=== PATIENT | female | born 1965 | race Caucasian/White ===

== ENCOUNTER 2018-01-12 11:29 | Observation (INO) ==
[2018-01-12 12:20] LABS: Basophils # 0.1 K/mcL (0.0-0.2); Basophils % 1.4 %; Eosinophils # 0.2 K/mcL (0.0-0.6); Eosinophils % 2.3 %; Hematocrit 38.4 % (35.3-44.9); Hemoglobin 12.9 g/dL (11.5-15.4); Immature Granulocytes % 0.4 % (0-4); Lymphocytes # 1.8 K/mcL (0.6-4.6); Mean Corpuscular HGB Conc 33.6 g/dL (31.6-35.5); Mean Corpuscular Hemoglobin 28.9 pg (28.0-33.3); Mean Corpuscular Volume 86.1 fL (83.0-100.0); Mean Platelet Volume 11.6 fL (9.4-12.4); Monocytes # 0.7 K/mcL (0.0-1.3); Monocytes % 8.9 %; Neutrophils # 4.6 K/mcL (1.6-8.9); Platelet Count 100 K/mcL (140-400); Red Blood Count 4.46 M/mcL (3.82-4.97); Red Cell Distribution Width 14.1 % (11.5-14.5)
[2018-01-12 12:23] LABS: INR 1.1; Prothrombin Time 11.8 Seconds (9.4-12.1)
[2018-01-12 12:26] LABS: Activated Partial Thrombo Time 27.2 Seconds (26.0-36.0)
[2018-01-12 12:32] LABS: Troponin I < 0.03 ng/mL (< 0.04)
[2018-01-12 12:40] LABS: BUN/Creatinine Ratio 16 (6-26); Blood Urea Nitrogen 12 mg/dL (6-20); Calcium 9.4 mg/dL (8.6-10.3); Carbon Dioxide 26 mEq/L (23-29); Chloride 105 mEq/L (98-107); Glucose 161 mg/dL (70-105); Osmolality,Calculated 293 (280-300); Potassium 3.8 mEq/L (3.5-5.1); Sodium 140 mEq/L (136-145); eGFR For African Americans > 60 (> 60); eGFR For Non-African Americans > 60 (> 60)
[2018-01-12] MEDS ORDERED: Isovue-370 500 ML INFUS..BTL IV ONE (12:40)
[2018-01-12] MEDS ORDERED: *HR* OxyCODONE/APAP 5/325 TABLET PO ONE (12:41)
--- NOTE | 2018-01-12 12:45 | Emergency Department Note ---
Disposition Clinical Impression: COPD exacerbation, History of malignant neoplasm of neck Dyspnea Qualifiers: Dyspnea type: shortness of breath Qualified Code(s): R06.02 - Shortness of breath Disposition: Admitted As Inpatient Condition: Good Referrals: NONE,PCP [Non-Partnered Physician] - Forms: ED Satisfaction Letter Time of Disposition: 13:42 Chest Pain HPI - General Chief Complaint: ED Chest Pain Stated Complaint: CP Time Seen by Provider: 01/12/18 12:04 Source: patient Limitations: no limitations Vital Signs Reviewed: Yes Nursing Notes Reviewed: Yes - History of Present Illness HPI Narrative: This is a 52 year-old female with history of throat cancer, s/p chemo and radiation in 2008, and recently discovered lung nodule. She presents with substernal chest pain since early this morning. The pain is dull most of the time, with an occasional sharp component. The pain is mainly in the center of her chest but sometimes radiates to the left shoulder. She reports dyspnea, with an exertional component, and increased wheezing. She reports a nonproductive cough and bilateral lower extremity edema (L>R), both chronic. No recent fever. Pt complaint: chest pain Onset (ago): hour(s) (8) Duration: constant Onset: during rest Pain Location: substernal Severity: moderate Severity scale (1-10): 5 Quality: sharp Pain Radiation: LUE (sometimes) Improves with: nothing Worsens with: nothing Context: other (history of cancer, new lung nodule) Associated symptoms: Reports: cough (chronic, nonproductive), leg swelling ( bilateral, L>R). Denies: fever - Related Data Home Medications Medication Instructions Recorded Confirmed Methylphenidate HCl [Ritalin] 20 mg PO BID PRN 06/27/15 01/12/18 Morphine Sulfate [Quyen] 20 mg PO BID 06/27/15 01/12/18 Oxycodone HCl/Acetaminophen 1 each PO Q4H PRN 06/27/15 01/12/18 [Percocet 10-325 mg Tablet] Omeprazole 20 mg PO DAILY 10/11/16 01/12/18 Previous Rx's Medication Instructions Recorded Supplies [SUPPLIES] 1 each .ROUTE QMONTH #1 each 02/25/17 Oxybutynin [Ditropan] 5 mg PO BID #60 tablet 04/11/17 Levothyroxine [Synthroid] 175 mcg PO DAILY #30 tablet 11/04/17 Albuterol Sulfate [Proair Hfa] 1 puff IH Q6H PRN #1 inh 12/12/17 Ipratropium/Albuterol Neb [Duoneb] 3 ml IH Q6HR PRN #30 vial.neb 12/12/17 Nebulizer Accessories [A.i.r.s. 1 each AD #1 kit 12/12/17 Nebulizer] Nebulizer and Compressor [Ombra 1 each AD #1 each 12/12/17 Compressor System] Omeprazole [PriLOSEC] 40 mg PO DAILY #30 cap 12/12/17 Sulfamethoxazole/Trimeth DS 1 each PO BID #14 tablet 12/12/17 [Bactrim DS] Allergies Allergy/AdvReac Type Severity Reaction Status Date / Time acetaminophen Allergy Nausea Verified 01/12/18 10:22 [From Darvocet-N] ciprofloxacin [From Cipro] Allergy Nausea Verified 01/12/18 10:22 hydrocodone [From Vicodin] Allergy Nausea Verified 01/12/18 10:22 propoxyphene Allergy Nausea Verified 01/12/18 10:22 [From Darvocet-N] All systems ED: reviewed and negative except as stated. Constitutional: Denies: fever Cardiovascular: Reports: as per HPI, chest pain, dyspnea on exertion Gastrointestinal: Denies: abdominal pain, vomiting, hematemesis, melena, hematochezia Chest Pain PMH - Past Medical History Medical history: Reports: asthma, cancer, COPD, hyperlipidemia, hypertension, other Surgical history: Reports: other Psychiatric history: Reports: anxiety, depression - Social History Smoking Status: Former smoker Alcohol use: Reports: none Drug use: Reports: none Physical Exam - General Limitations: no limitations General appearance: alert - Head Head exam: atraumatic - Eye Eye exam: Present: normal appearance - ENT ENT exam: mucous membranes moist - Neck Neck exam: Present: other (s/p trach) - Respiratory Respiratory exam: Present: normal lung sounds bilaterally, wheezes (faint) - Cardiovascular Cardiovascular exam: Present: regular rate, normal rhythm, normal heart sounds - Abdominal Exam Abdominal exam: Present: soft, Non-Tender. Absent: distention - Extremities Exam Extremities exam: Present: normal inspection. Absent: calf tenderness - Neurological Exam Neurological exam: Present: alert, oriented X3 - Psychiatric Psychiatric exam: Present: normal affect, normal mood - Skin Skin exam: Present: warm, dry, intact Course - Reevaluation(s) Reevaluation #1: On recheck, patient is resting comfortably. Discussed test results with patient. She would like to come in for observation. Time: 13:41 - Consultations Consultation #1: Discussed case with Dr. Galo, who has accepted patient for admission. Time: 14:09 Vital Signs Temperature 98.4 F 01/12/18 11:36 Pulse Rate 100 01/12/18 11:36 Respiratory Rate 18 01/12/18 11:36 Blood Pressure 138/74 01/12/18 11:36 O2 Sat by Pulse Oximetry 97 01/12/18 11:36 Temperature 98.4 F 01/12/18 11:36 Pulse Rate 100 01/12/18 11:36 Respiratory Rate 18 01/12/18 11:36 Blood Pressure 138/74 01/12/18 11:36 O2 Sat by Pulse Oximetry 97 01/12/18 11:36 Oxygen Delivery Oxygen Delivery Room Air Chest Pain - Lab Data Lab results reviewed: Yes I reviewed the patient's lab results. Result diagrams: 01/12/18 11:56 01/12/18 11:56 Lab Results 01/12/18 01/12/18 01/12/18 Range/Units 11:56 11:56 11:56 WBC 7.3 (4.3-11.1) K/mcL RBC 4.46 (3.82-4.97) M/mcL Hgb 12.9 (11.5-15.4) g/dL Hct 38.4 (35.3-44.9) % MCV 86.1 (83.0-100.0) fL MCH 28.9 (28.0-33.3) pg MCHC 33.6 (31.6-35.5) g/dL RDW 14.1 (11.5-14.5) % Plt Count 100 L (140-400) K/mcL MPV 11.6 (9.4-12.4) fL Immature Gran % 0.4 (0-4) % Seg Neutrophils % 63.0 % Lymphocytes % 24.0 % Monocytes % 8.9 % Eosinophils % 2.3 % Basophils % 1.4 % Neutrophils # 4.6 (1.6-8.9) K/mcL Lymphocytes # 1.8 (0.6-4.6) K/mcL Monocytes # 0.7 (0.0-1.3) K/mcL Eosinophils # 0.2 (0.0-0.6) K/mcL Basophils # 0.1 (0.0-0.2) K/mcL PT 11.8 (9.4-12.1) Seconds INR 1.1 APTT 27.2 (26.0-36.0) Seconds Sodium (136-145) mEq/L Potassium (3.5-5.1) mEq/L Chloride (98-107) mEq/L Carbon Dioxide (23-29) mEq/L BUN (6-20) mg/dL Creatinine (0.60-1.20) mg/dL Est GFR ( Amer) (> 60) Est GFR (Non-Af Amer) (> 60) BUN/Creatinine Ratio (6-26) Glucose (70-105) mg/dL Calculated Osmolality (280-300) Calcium (8.6-10.3) mg/dL Troponin I (< 0.04) ng/mL B-Natriuretic Peptide 9 (Less than 100) pg/mL 01/12/18 Range/Units 11:56 WBC (4.3-11.1) K/mcL RBC (3.82-4.97) M/mcL Hgb (11.5-15.4) g/dL Hct (35.3-44.9) % MCV (83.0-100.0) fL MCH (28.0-33.3) pg MCHC (31.6-35.5) g/dL RDW (11.5-14.5) % Plt Count (140-400) K/mcL MPV (9.4-12.4) fL Immature Gran % (0-4) % Seg Neutrophils % % Lymphocytes % % Monocytes % % Eosinophils % % Basophils % % Neutrophils # (1.6-8.9) K/mcL Lymphocytes # (0.6-4.6) K/mcL Monocytes # (0.0-1.3) K/mcL Eosinophils # (0.0-0.6) K/mcL Basophils # (0.0-0.2) K/mcL PT (9.4-12.1) Seconds INR APTT (26.0-36.0) Seconds Sodium 140 (136-145) mEq/L Potassium 3.8 (3.5-5.1) mEq/L Chloride 105 (98-107) mEq/L Carbon Dioxide 26 (23-29) mEq/L BUN 12 (6-20) mg/dL Creatinine 0.74 (0.60-1.20) mg/dL Est GFR ( Amer) > 60 (> 60) Est GFR (Non-Af Amer) > 60 (> 60) BUN/Creatinine Ratio 16 (6-26) Glucose 161 H (70-105) mg/dL Calculated Osmolality 293 (280-300) Calcium 9.4 (8.6-10.3) mg/dL Troponin I < 0.03 (< 0.04) ng/mL B-Natriuretic Peptide (Less than 100) pg/mL - Radiology Data Radiology results reviewed: Yes I reviewed the patient's radiology results. XR/XR chest 1V portable IMPRESSION: 1. No acute cardiopulmonary disease. 2. Tracheostomy in place. CT/CT angio chest IMPRESSION: 1. No CT evidence of a pulmonary embolism. 2. No acute abnormality of the thoracic aorta. 3. No acute intra pulmonary findings. 4. Stable 8 mm left lower lobe pulmonary nodule, possibly a focus of metastatic disease given the patient's history of head neck cancer. As stated on yesterday's report, suggest further characterization with a PET-CT study and/or biopsy. - EKG Data EKG attestation: Yes I reviewed and interpreted this EKG. EKG shows normal: sinus rhythm Rhythm: NSR [place]/QRS: normal When compared to previous EKG there are: no significant changes Interpretation: normal EKG
[2018-01-12] MEDS ORDERED: Ipratropium/Albuterol Neb 3 ML IH ONE (13:37)
--- NOTE | 2018-01-12 13:39 | Electrocardiograph Report ---
[place] [employer] [facility] Test Date: 2018-01-12 Pat Name: Kierra Zarco Department: 103 Room: Gender: F Delivery Lead: : 1965 Requested By: Travon Skelton Order Number: [id number] Gilda MD: Misael Gonzalez MD Measurements Intervals [place] Rate: 93 P: 61 MT: 152 QRS: 23 QRSD: 92 T: 41 QT: 376 QTc: 427 Interpretive Statements SINUS RHYTHM Electronically Signed On 01-12-2018 13:38:24 EDT by Misael Gonzalez MD
[2018-01-12] MEDS ORDERED: Naloxone 0.4 MG/ML INJ IVP PRN (17:21)
[2018-01-12] MEDS ORDERED: Methylphenidate HCl 10 MG TABLET PO PRN (17:32)
--- NOTE | 2018-01-12 17:38 | Internal Med History&Physical ---
Date of Encounter: 01/12/18 Time of Encounter: 17:37 Internal Medicine - H&P: HPI Chief complaint: chest pain Admitted From: Emergency Dept Plans for Post Hospital Care: Home History of present illness: Ms. 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 Patient came to emergency department for persistent precordial chest pain which was radiating to her jaw. The chest pain was getting worse with activity and exertion and was relieved by rest. In view of the persistent chest pain patient decided to come to Hospital emergency department for further evaluation. Workup in the emergency room: Patient was evaluated in the emergency department. Basic workup was done. EKG was done. Troponins were drawn. Reason for admission: Chest pain to rule out acute coronary syndrome. Family history: Noncontributory Past Med Surg Social Fam HX - Past Medical History Medical history: asthma, cancer, COPD, hyperlipidemia, hypertension, other Psychiatric history: anxiety, depression - Past Surgical History Surgical History: other - Social History Smoking Status: Former smoker Smokeless Tobacco Status: No Alcohol use: none Drug use: none - Family History Father Living Status: Hx Family Cardiac Disorders: Yes Mother Living Status: Hx Family Cancer: Yes Internal Medicine - H&P: Meds Methylphenidate HCl [Ritalin] 20 mg PO BID PRN 06/27/15 [History] Oxybutynin [Ditropan] 5 mg PO BID #60 tablet 04/11/17 [Rx] Levothyroxine [Synthroid] 175 mcg PO DAILY #30 tablet 11/04/17 [Rx] Ipratropium/Albuterol Neb [Duoneb] 3 ml IH Q6HR PRN #30 vial.neb 12/12/17 [Rx] Omeprazole [PriLOSEC] 40 mg PO DAILY #30 cap 12/12/17 [Rx] HydrOXYzine [HydrOXYzine] 10 mg PO BID 01/12/18 [History] HydrOXYzine [HydrOXYzine] 20 mg PO HS 01/12/18 [History] Morphine Sulfate SR (12 HR) [MS Contin] 15 mg PO BID 01/12/18 [History] Oxycodone HCl 15 mg PO QID 01/12/18 [History] 3 Allergy/AdvReac Type Severity Reaction Status Date / Time acetaminophen Allergy Nausea Verified 01/12/18 15:13 [From Darvocet-N] ciprofloxacin [From Cipro] Allergy Nausea Verified 01/12/18 15:13 hydrocodone [From Vicodin] Allergy Nausea Verified 01/12/18 15:13 propoxyphene Allergy Nausea Verified 01/12/18 15:13 [From Darvocet-N] All Systems PM: A 10-system review of systems was performed and is negative for pertinent findings except as documented above in the HPI. - Constitutional Constitutional: no chills, no fever(s), no night sweats - EENT Eyes: no change in vision, no discharge, no pain, no photophobia Ears: no ear discharge, no ear pain, no tinnitus Nose, mouth and throat: no dysphagia, no nasal discharge, no neck pain, no sore throat - Cardiovascular Cardiovascular ROS IM: chest pain, no diaphoresis, no dyspnea, no lightheadedness, no palpitations, no syncope - Respiratory Respiratory: no cough, no dyspnea, no wheezing, no excessive phlegm production - Gastrointestinal Gastrointestinal: no abdominal pain, no diarrhea, no hematemesis, no hematochezia, no melena, no nausea, no vomiting - Genitourinary Genitourinary: no change in urinary stream, no dysuria, no flank pain, no hematuria - Musculoskeletal Musculoskeletal ROS IM: no numbness, no tingling - Integumentary Integumentary IM: no rash, no unusual bruising - Neurological Neurological ROS: no confusion, no convulsions, no focal weakness, no numbness, no tingling, no tremor(s) - Hematologic/Lymphatic Hematologic/Lymphatic: no easy bruising - Constitutional Vitals: Temp Pulse Resp BP Pulse Ox 98.6 F 82 14 136/76 95 01/12/18 16:10 01/12/18 16:10 01/12/18 16:10 01/12/18 16:10 01/12/18 16:10 General appearance: Present: A&O X 3, pleasant, no acute distress, answers questions appropriately - Head Head exam: Present: atraumatic, normocephalic - Eye Eye exam: Present: PERRL, conjuntiva pink, sclera anicteric Pupils: Present: PERRL - Neck Neck exam general surgery: Present: supple, trachea midline. Absent: lymphadenopathy - Respiratory Respiratory exam: Present: CTAB. Absent: accessory muscle use, rales, rhonchi, wheezes - Cardiovascular Cardiovascular exam: Present: RRR, +S1, +S2. Absent: diastolic murmur, gallop, rubs, systolic murmur - GI/Abdominal GI/Abdominal exam: Present: normal bowel sounds, soft, no peritoneal signs. Absent: distended, tenderness - Extremities Exam Extremities exam: Present: warm, radial pulses palpable and symmetrical. Absent : calf tenderness, cyanotic, pedal edema - Neurological Exam Neurological exam: Present: CN II-XII intact, oriented X3, no focal deficits. Absent: pronater drift, facial droop, speech deficit - Skin Skin exam: Present: dry, intact Internal Med - H&P Results - Labs CBC & Chem 7: 01/12/18 11:56 01/12/18 11:56 - Assessment and plan (1) Chest pain Current Visit: No Status: Acute Assessment and plan: 52/female Admitted with chest pain. Background history of a supraglottic cancer. Had extensive radiation to the precordial area. Plan: Admit as observation. Aspirin/beta myrna/statin. Sublingual nitroglycerin. Cycle troponin. Echocardiogram. If the troponin negative/echocardiogram negative: Consider stress test. I have examined this patient in the emergency department. Plan of care extent to the patient. She verbalized understanding. Qualifiers: Chest pain type: other chest pain Qualified Code(s): R07.89 - Other chest pain; R07.8 - Other chest pain (2) Head and neck cancer Current Visit: No Status: Acute Assessment and plan: Patient is a supraglottic cancer. She underwent surgery/chemotherapy/radiation therapy. Patient had a metastatic disease to the brain. patient underwent radiation therapy for the same. Now she claims that there is a new nodules/masses noted in the lung. We will get oncology to evaluate patient. (3) DVT prophylaxis Current Visit: Yes Status: Acute Assessment and plan: Heparin Medical decision making: This patient has a moderate to severe risk of worsening in spite of being on appropriate medication due to the underlying complex medical condition. - Time Spent With Patient Total time spent is greater than 50% in coordination of care (as documented) at patient's floor/unit and/or counseling patient:
[2018-01-12] MEDS ORDERED: Nitroglycerin 0.4 MG TAB.SUBL SL PRN (19:44)
[2018-01-12] MEDS: *HR* Heparin 5,000 UNIT/ML VIAL SQ SCH (21:35)
[2018-01-12] MEDS: *HR* Morphine Sulfate SR (12 HR) 15 MG TABLET.ER PO SCH (21:43)
[2018-01-12] MEDS: *HR* OxyCODONE Immed Rel 15 MG TABLET PO PRN (21:43)
[2018-01-12] MEDS: Ipratropium/Albuterol Neb 3 ML IH PRN (22:37)
[2018-01-13] MEDS: *HR* OxyCODONE Immed Rel 15 MG TABLET PO PRN ×4 (03:56→21:29)
[2018-01-13 05:35] LABS: INR 1.1; Prothrombin Time 11.6 Seconds (9.4-12.1)
[2018-01-13 05:37] LABS: Activated Partial Thrombo Time 27.8 Seconds (26.0-36.0)
[2018-01-13 05:49] LABS: Alanine Aminotransferase 28 Units/L (7-52); Albumin/Globulin Ratio 1.7 (1.1-2.2); Alkaline Phosphatase 64 Units/L (34-104); Aspartate Amino Transferase 29 Units/L (13-39); BUN/Creatinine Ratio 16 (6-26); Bilirubin,Total 0.3 mg/dL (0.3-1.0); Blood Urea Nitrogen 10 mg/dL (6-20); Calcium 8.8 mg/dL (8.6-10.3); Carbon Dioxide 28 mEq/L (23-29); Chloride 105 mEq/L (98-107); Chol/HDL Ratio 4.7 (0-4.9); Cholesterol 189 mg/dL (< 200); Globulin 2.3 g/dL (2.4-3.5); Glucose 124 mg/dL (70-105); HDL Cholesterol 40 mg/dL (40-59); LDL Cholesterol,Calculated 98 mg/dL (0-99); Magnesium 2.1 mg/dL (1.6-2.6); Osmolality,Calculated 288 (280-300); Potassium 3.6 mEq/L (3.5-5.1); Sodium 139 mEq/L (136-145); Total Protein 6.3 g/dL (6.4-8.9); Triglycerides 256 mg/dL (< 150); eGFR For African Americans > 60 (> 60); eGFR For Non-African Americans > 60 (> 60)
[2018-01-13] MEDS: *HR* Heparin 5,000 UNIT/ML VIAL SQ SCH ×3 (06:16→21:30)
[2018-01-13] MEDS ORDERED: Regadenoson 0.4 MG/5 ML SYRINGE IVP ONE (08:14)
[2018-01-13] MEDS: *HR* Morphine Sulfate SR (12 HR) 15 MG TABLET.ER PO SCH ×2 (11:03→21:30)
--- NOTE | 2018-01-13 11:18 | Internal Med Progress Note ---
Date of Encounter: 01/13/18 Time of Encounter: 11:14 - Assessment and plan (1) Chest pain Current Visit: No Status: Acute Assessment and plan: 52/female experiencing substernal chest pain mostly dull occasionally sharp dyspnea with exertion. Risk include obesity previous smoker hypertension hyperlipidemia. Troponins are negative [address]-T wave abnormalities. Patient underwent first half of 2 day stress test tolerated well- echocardiogram Continue with aspirin beta myrna and statin Nitroglycerin as needed for chest pain Qualifiers: Chest pain type: other chest pain Qualified Code(s): R07.89 - Other chest pain; R07.8 - Other chest pain (2) Head and neck cancer Current Visit: No Status: Acute Assessment and plan: Patient is a supraglottic cancer. She underwent surgery/chemotherapy/radiation therapy. Patient had a metastatic disease to the brain. patient underwent radiation therapy for the same. She does have stable 8 mm left lower lobe pulmonary nodule. Was seen by oncology 01/12/18-will undergo PET scan in 2 weeks January 25 for new left lower lobe lung nodule (3) DVT prophylaxis Current Visit: Yes Status: Acute Assessment and plan: Heparin subcutaneous - Time Spent With Patient Total time spent is greater than 50% in coordination of care (as documented) at patient's floor/unit and/or counseling patient: - Subjective Interval history: Patient is new to me I did review medical records. Patient has undergone the first half of 2 day cardiac stress test. Tolerated procedure well. No chest pain or stress of the voice at this time. I did review treatment plan with patient who verbalized understanding. - Constitutional Vitals: Temp Pulse Resp BP Pulse Ox 98.2 F 80 18 152/84 91 01/13/18 11:08 01/13/18 11:08 01/13/18 11:08 01/13/18 11:08 01/13/18 11:08 General appearance: Present: A&O X 3, pleasant, no acute distress, answers questions appropriately - Head Head exam: Present: atraumatic, normocephalic - Eye Eye exam: Present: PERRL, conjuntiva pink, sclera anicteric Pupils: Present: PERRL - Neck Neck exam general surgery: Present: supple, trachea midline. Absent: lymphadenopathy - Respiratory Respiratory exam: Present: CTAB. Absent: accessory muscle use, rales, rhonchi, wheezes - Cardiovascular Cardiovascular exam: Present: RRR, +S1, +S2. Absent: diastolic murmur, gallop, rubs, systolic murmur - GI/Abdominal GI/Abdominal exam: Present: normal bowel sounds, soft, no peritoneal signs. Absent: distended, tenderness - Extremities Exam Extremities exam: Present: warm, radial pulses palpable and symmetrical. Absent : calf tenderness, cyanotic, pedal edema - Neurological Exam Neurological exam: Present: CN II-XII intact, oriented X3, no focal deficits. Absent: pronater drift, facial droop, speech deficit - Skin Skin exam: Present: dry, intact Internal Medicine: Result - Labs CBC & Chem 7: 01/12/18 11:56 01/13/18 05:01 Labs: BMP 01/13/18 05:01 Sodium 139 Potassium 3.6 Chloride 105 Carbon Dioxide 28 BUN 10 Creatinine 0.63 Glucose 124 H Calcium 8.8 Cardiac Enzymes 01/12/18 01/12/18 01/13/18 Range/Units 21:04 22:49 05:01 Troponin I < 0.03 < 0.03 < 0.03 (< 0.04) ng/mL Liver Function 01/13/18 Range/Units 05:01 Total Bilirubin 0.3 (0.3-1.0) mg/dL AST 29 (13-39) Units/L ALT 28 (7-52) Units/L Alkaline Phosphatase 64 (34-104) Units/L Albumin 4.0 (3.5-5.7) g/dL - ABG Interpretation ABG results: PT/INR, D-dimer PT 11.6 Seconds (9.4-12.1) 01/13/18 05:01 Consult Discharge Plan - Plan
[2018-01-13] MEDS: Aspirin Enteric Coated 81 MG Tablet PO SCH (11:29)
--- NOTE | 2018-01-13 11:47 | Oncology Inp Consult Note ---
<Jey Talbert Jr - Last Filed: 01/13/18 15:14> Date of Encounter: 01/13/18 Time of Encounter: 11:44 Assessment and Plan (1) History of malignant neoplasm of neck Status: Acute Assessment and plan: As is a very pleasant 52-year-old female with a history of head and neck cancer , in remission. Follows Dr. Jc Mclaughlin at the [facility] for surveillance. CT neck abdomen and pelvis with 02/2017 negative. Large right renal cyst She has chronic changes in the neck since treatment CT scan of chest, abdomen and pelvis on 01/11/2018 showed no metastatic disease in the abdomen or pelvis. She does have a new 8 mm left lower lobe lung nodule. No other acute process on CT scans. PET scan recommended and/or biopsy due to history and tobacco use. PET scan was ordered for 01/25/18 as an outpatient Family history colon cancer in maternal GM, maternal aunt. Mom had uterine cancer. Larson syndrome concern. Genetic testing negative January 2018 in genetics counseling clinic at [facility] Patient had acute substernal chest pain, and difficulty breathing yesterday when at our clinic. She was sent to ER. We agree with recommendations of hospitalist and stress testing due to her cardiac risk factors. In terms of her new left lower lobe lung nodule, this will be evaluated as an outpatient with PET scan. No new addition to the current plan while hospitalized for this bout of chest pain. Dr Mclaughlin will assess patient as well, and place any further notations in chart. (2) Mass of lower lobe of left lung Status: Acute - Data of Consult Patient: known to practice within the last 3 years Consult date: 01/13/18 Requesting Physician: Rosalino Galo Primary Care Provider: Jey Talbert Jr, - Consult Narrative Reason for consult: Head and neck cacner history with new lung nodule History of present illness: Ms. Zarco is a 52 year old female with history Left arytenoid squamous cell carcinoma, December 2008. Supraglottic laryngectomy with left neck dissection. Oropharyngeal myomectomy December 2009. Well-differentiated squamous cell carcinoma, grade 1, limited to larynx T3 N0 M0, clear margins, no additional resection. Postoperatively concurrent chemoradiation with cisplatin, 3 doses 100 mg/m2. Currently in remission She has tracheostomy MRI brain w/wo contrast on 05/20/16 shows no evidence to suggest intracranial metastatic disease. Showed evidence of previous surgery which she had for meningioma Ct abd/pel w/ con on 05/20/[address] neck w/con on 05/20/16 was negative no evidence of lymphadenopathy CT scan of chest, abdomen and pelvis on 01/11/2018 showed no metastatic disease in the abdomen or pelvis. She does have a new 8 mm left lower lobe lung nodule. PET scan recommended and or biopsy. PET scan was ordered 01/12/18 for 01/25/18 as outpatient Patient came to the [facility] on 01/12/2018 with substernal chest pain , difficulty breathing especially on exertion. She has significant wheezing of the upper airways. She has known history of asthma/COPD from smoking previously. She is on home nebulizers and rescue inhalers. She had several risk factors for coronary artery disease, so she was sent to the emergency department for evaluation. She was admitted and she is currently undergoing 2 day cardiac stress testing. Past Med Surg Social Fam HX - Past Medical History Medical history: asthma, cancer, COPD, hyperlipidemia, hypertension, other Psychiatric history: anxiety, depression - Past Surgical History Surgical History: other - Social History Smoking Status: Former smoker Smokeless Tobacco Status: No Alcohol use: none Drug use: none - Family History Father Living Status: Hx Family Cardiac Disorders: Yes Mother Living Status: Hx Family Cancer: Yes Medications and Allergies Methylphenidate HCl [Ritalin] 20 mg PO BID PRN 06/27/15 [History] Oxybutynin [Ditropan] 5 mg PO BID #60 tablet 04/11/17 [Rx] Levothyroxine [Synthroid] 175 mcg PO DAILY #30 tablet 11/04/17 [Rx] Ipratropium/Albuterol Neb [Duoneb] 3 ml IH Q6HR PRN #30 vial.neb 12/12/17 [Rx] Omeprazole [PriLOSEC] 40 mg PO DAILY #30 cap 12/12/17 [Rx] HydrOXYzine 10 mg PO BID 01/12/18 [History] HydrOXYzine 20 mg PO HS 01/12/18 [History] Morphine Sulfate SR (12 HR) [MS Contin] 15 mg PO BID 01/12/18 [History] Oxycodone HCl 15 mg PO QID 01/12/18 [History] Aspirin Enteric Coated [Aspirin EC] 81 mg PO DAILY #30 tablet. 01/16/18 [Rx] 3 Allergy/AdvReac Type Severity Reaction Status Date / Time acetaminophen Allergy Nausea Verified 01/12/18 15:13 [From Darvocet-N] ciprofloxacin [From Cipro] Allergy Nausea Verified 01/12/18 15:13 hydrocodone [From Vicodin] Allergy Nausea Verified 01/12/18 15:13 propoxyphene Allergy Nausea Verified 01/12/18 15:13 [From Darvocet-N] Constitutional: Present: fatigue Cardiovascular: Present: chest pain with activity Respiratory: Present: dyspnea on exertion, wheezing Oncology - Exam - Constitutional Vitals: Temp Pulse Resp BP Pulse Ox 98.2 F 80 18 152/84 91 01/13/18 11:08 01/13/18 11:08 01/13/18 11:08 01/13/18 11:08 01/13/18 11:08 General appearance: cooperative, no acute distress - Head Head exam: Present: atraumatic, normocephalic - Eye Eye exam: Present: PERRL Pupils: Present: normal accommodation - ENT ENT exam: Present: mucous membranes moist - Neck Neck exam: Present: full ROM Additional comments: tracheostomy - Respiratory Respiratory exam: Present: decreased breath sounds, wheezes - Cardiovascular Cardiovascular exam: Present: RRR, +S1, +S2 - GI/Abdominal GI/Abdominal exam: Present: normal bowel sounds, soft - Neurological Exam Neurological exam: Present: alert, oriented X3, no focal deficits - Psychiatric Psychiatric exam: Present: normal affect, normal mood - Skin Skin exam: Present: dry, intact, warm Oncology - Results Labs: BMP 01/13/18 05:01 Sodium 139 Potassium 3.6 Chloride 105 Carbon Dioxide 28 BUN 10 Creatinine 0.63 Glucose 124 H Calcium 8.8 Cardiac Enzymes 01/12/18 01/12/18 01/13/18 Range/Units 21:04 22:49 05:01 Troponin I < 0.03 < 0.03 < 0.03 (< 0.04) ng/mL Liver Function 01/13/18 Range/Units 05:01 Total Bilirubin 0.3 (0.3-1.0) mg/dL AST 29 (13-39) Units/L ALT 28 (7-52) Units/L Alkaline Phosphatase 64 (34-104) Units/L Albumin 4.0 (3.5-5.7) g/dL Consult Discharge Plan - Plan Instructions: Chest Pain (DC) Referrals: Jey Talbert Jr, PAT [Primary Care Provider] - Jc Mclaughlin MD [Partnered Physician] - Prescriptions: Aspirin Enteric Coated [Aspirin EC] 81 mg PO DAILY #30 tablet.dr <Jc Mclaughlin - Last Filed: 01/16/18 17:27> Date of Encounter: 01/16/18 - Data of Consult Requesting Physician: Rosalino Galo Primary Care Provider: Jey Talbert Jr, - Consult Narrative History of present illness: Ms. Zarco is a 52 year old female Oncology - Exam - Constitutional Vitals: Temp Pulse Resp BP Pulse Ox 97.5 F L 93 15 120/83 92 01/16/18 14:45 01/16/18 16:30 01/16/18 10:46 01/16/18 16:30 01/16/18 16:30 - Attending Attestation 1. Head and neck cancer treated currently in remission 2. CT chest 01/21/2018 showed 8mm new spiculated nodule left lower lobe. PET scan as an outpatient 3. She is admitted with chest pain mostly sharp in the anterior chest radiating to back. Serial troponins negative. Nuclear stress test showed ejection fraction more than 70% perfusion images negative for ischemia. But she did have chest pain during stress test Left heart catheter showed minimal disease. Echocardiogram 01/13/2018 showed ejection fraction 60-65%. No pulmonary hypertension. Both ventricular function normal
[2018-01-13] MEDS: Ipratropium/Albuterol Neb 3 ML IH PRN (16:00)
[2018-01-14] MEDS: *HR* OxyCODONE Immed Rel 15 MG TABLET PO PRN ×4 (03:11→21:43)
[2018-01-14] MEDS: *HR* Heparin 5,000 UNIT/ML VIAL SQ SCH ×3 (06:07→21:43)
[2018-01-14] MEDS: Aspirin Enteric Coated 81 MG Tablet PO SCH (09:22)
[2018-01-14] MEDS: *HR* Morphine Sulfate SR (12 HR) 15 MG TABLET.ER PO SCH ×2 (09:22→21:44)
--- NOTE | 2018-01-14 16:37 | Discharge Summary ---
- NOTES TO OUTPATIENT PROVIDER Notes to Outpatient Provider: She will need follow up with oncology for PETscan scheduled 01/26/2017 Orders not resulted at time of discharge: Pending orders 01/13/18 07:53 NM yolis perf SPECT multi [NM] Routine Date of Encounter: 01/14/18 Time of Encounter: 16:37 - Discharge Diagnosis (1) Chest pain Priority: Primary Status: Acute Qualifiers: Chest pain type: other chest pain Qualified Code(s): R07.89 - Other chest pain; R07.8 - Other chest pain (2) Head and neck cancer Priority: Secondary Status: Acute Hospital course: Ms. Zarco is a 52 year old female past medical history of hypertension hyperlipidemia COPD supraglottic density for which she underwent surgery/ chemotherapy/radiation therapy-tracheostomy. CT scan of chest abdomen pelvis on 01/11/2018 showed no metastatic disease in the abdomen or pelvis. She does have a new 8 mm left lower lobe lung nodule. She is being seen by oncology and is to undergo a PET scan 01/25/2018 as an outpatient. 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 Chest pain is aggravated with activity and exertion relieved with rest.. Troponin was negative [address]-T wave abnormalities echocardiogram was completed EF of 66 5% she underwent a 2 day stress test which was negative for any ischemia or infarct. She was seen by oncology for new 8 mm left lower lobe lung nodule. Advising to follow-up as outpatient for PET scan. Patient's follow-up with her primary care physician as well. Advised patient to follow-up with oncology as well as PCP. Advised patient take medications as prescribed. I answered patient's questions. She is presently hemodynamically stable and ready for discharge. - Time Spent with Patient Total time spent providing and/or coordinating discharge services: - Discharge Medications Home Medications: Methylphenidate HCl [Ritalin] 20 mg PO BID PRN 06/27/15 [History] Oxybutynin [Ditropan] 5 mg PO BID #60 tablet 04/11/17 [Rx] Levothyroxine [Synthroid] 175 mcg PO DAILY #30 tablet 11/04/17 [Rx] Ipratropium/Albuterol Neb [Duoneb] 3 ml IH Q6HR PRN #30 vial.neb 12/12/17 [Rx] Omeprazole [PriLOSEC] 40 mg PO DAILY #30 cap 12/12/17 [Rx] HydrOXYzine 10 mg PO BID 01/12/18 [History] HydrOXYzine 20 mg PO HS 01/12/18 [History] Morphine Sulfate SR (12 HR) [MS Contin] 15 mg PO BID 01/12/18 [History] Oxycodone HCl 15 mg PO QID 01/12/18 [History] Allergies/Adverse Reactions: 3 Allergy/AdvReac Type Severity Reaction Status Date / Time acetaminophen Allergy Nausea Verified 01/12/18 15:13 [From Darvocet-N] ciprofloxacin [From Cipro] Allergy Nausea Verified 01/12/18 15:13 hydrocodone [From Vicodin] Allergy Nausea Verified 01/12/18 15:13 propoxyphene Allergy Nausea Verified 01/12/18 15:13 [From Darvocet-N] Date of admission: 01/12/18 15:09 Primary care physician: Jey Talbert Jr, Consults: 01/12/18 17:34 Consult to Oncology Hematology [CONS] Routine Consulting Provider: Jc Mclaughlin Reason for Consult: Ca larynx with new lung nodule Call Completed: Yes Discharging clinician: Vicenta Mcgowan Anticipated date of discharge: 01/14/18 - Constitutional Vitals: Temp Pulse Resp BP Pulse Ox 98.1 F 95 18 125/71 93 01/14/18 10:55 01/14/18 10:55 01/14/18 10:55 01/14/18 10:55 01/14/18 10:55 General appearance: Present: A&O X 3, pleasant, no acute distress, answers questions appropriately - Head Head exam: Present: atraumatic, normocephalic - Eye Eye exam: Present: PERRL, conjuntiva pink, sclera anicteric Pupils: Present: PERRL - Neck Neck exam general surgery: Present: supple, trachea midline. Absent: lymphadenopathy - Respiratory Respiratory exam: Present: CTAB. Absent: accessory muscle use, rales, rhonchi, wheezes - Cardiovascular Cardiovascular exam: Present: RRR, +S1, +S2. Absent: diastolic murmur, gallop, rubs, systolic murmur - GI/Abdominal GI/Abdominal exam: Present: normal bowel sounds, soft, no peritoneal signs. Absent: distended, tenderness - Extremities Exam Extremities exam: Present: warm, radial pulses palpable and symmetrical. Absent : calf tenderness, cyanotic, pedal edema - Neurological Exam Neurological exam: Present: CN II-XII intact, oriented X3, no focal deficits. Absent: pronater drift, facial droop, speech deficit - Skin Skin exam: Present: dry, intact - Patient Status Disposition: Home, Self-Care Condition: Good Functional capacity at discharge: independent ambulation Overall status at discharge: patient is back to baseline - Discharge Instructions Instructions: Chest Pain (DC) Follow Up With: Jey Talbert Jr, CNP [Primary Care Provider] - Jc Mclaughlin MD [Partnered Physician] - Forms: Work/School Release - Diet and Activity Activity: resume usual activities as tolerated Diet: advance to your usual diet
--- NOTE | 2018-01-14 17:17 | Internal Med Progress Note ---
Date of Encounter: 01/14/18 Time of Encounter: 17:14 - Assessment and plan (1) Chest pain Current Visit: No Status: Acute Assessment and plan: 52/female experiencing substernal chest pain mostly dull occasionally sharp dyspnea with exertion. Risk include obesity previous smoker hypertension hyperlipidemia. Troponins are negative [address]-T wave abnormalities. Patient underwent second half of 2 day stress test tolerated well-awaiting results echocardiogram-EF 6065% normal LV chamber size wall thickness and function mild left ventricular diastolic dysfunction normal right ventricular structure and function no evidence pulmonary hypertension no significant valvular dysfunction Continue with aspirin beta myrna and statin Nitroglycerin as needed for chest pain Qualifiers: Chest pain type: other chest pain Qualified Code(s): R07.89 - Other chest pain; R07.8 - Other chest pain (2) Head and neck cancer Current Visit: No Status: Acute Assessment and plan: Patient is a supraglottic cancer. She underwent surgery/chemotherapy/radiation therapy. Patient had a metastatic disease to the brain. patient underwent radiation therapy for the same. She does have stable 8 mm left lower lobe pulmonary nodule. Was seen by oncology 01/12/18-will undergo PET scan in 2 weeks January 25 for new left lower lobe lung nodule Seen by oncology per consult-will follow-up with PET scan as outpatient - Time Spent With Patient Total time spent is greater than 50% in coordination of care (as documented) at patient's floor/unit and/or counseling patient: - Subjective Interval history: Patient has undergone the second half of her 2 day stress test. She tolerated procedure well denies any chest pain at this time awaiting results. I did speak with oncology Dr. Morrison confirmed follow-up advised to follow-up as outpatient for PET scan reviewed treatment plan with patient who understands and agrees - Constitutional Vitals: Temp Pulse Resp BP Pulse Ox 98.1 F 95 18 125/71 93 01/14/18 10:55 01/14/18 10:55 01/14/18 10:55 01/14/18 10:55 01/14/18 10:55 General appearance: Present: A&O X 3, pleasant, no acute distress, answers questions appropriately - Head Head exam: Present: atraumatic, normocephalic - Eye Eye exam: Present: PERRL, conjuntiva pink, sclera anicteric Pupils: Present: PERRL - Neck Neck exam general surgery: Present: supple, trachea midline. Absent: lymphadenopathy - Respiratory Respiratory exam: Present: CTAB. Absent: accessory muscle use, rales, rhonchi, wheezes - Cardiovascular Cardiovascular exam: Present: RRR, +S1, +S2. Absent: diastolic murmur, gallop, rubs, systolic murmur - GI/Abdominal GI/Abdominal exam: Present: normal bowel sounds, soft, no peritoneal signs. Absent: distended, tenderness - Extremities Exam Extremities exam: Present: warm, radial pulses palpable and symmetrical. Absent : calf tenderness, cyanotic, pedal edema - Neurological Exam Neurological exam: Present: CN II-XII intact, oriented X3, no focal deficits. Absent: pronater drift, facial droop, speech deficit - Skin Skin exam: Present: dry, intact Internal Medicine: Result - Labs CBC & Chem 7: 01/12/18 11:56 01/13/18 05:01 - ABG Interpretation ABG results: PT/INR, D-dimer PT 11.6 Seconds (9.4-12.1) 01/13/18 05:01 Consult Discharge Plan - Plan Referrals: Jey Talbert Jr, ART CLASS MODEL [Primary Care Provider] -
--- NOTE | 2018-01-14 17:54 | Event Note ---
Date of Encounter: 01/14/18 Time of Encounter: 17:52 Received a message from Dr. Hatfield concerning stress test "accuracy in 2 day stress test is always a bit lower. I am going to to say cannot rule out multivessel CAD because a small ventricle and appearance of tid. Most likely this is artifact. If she continues to have chest pain we can keep and cath on Tuesday. If not I can see her in clinic Tuesday to see how she is doing. Just send her on aspirin nitroglycerin and ED precautions." Did discuss this result with the patient she does express that she continues to have intermittent chest pain. We will keep overnight and monitor and I will discuss with cardiology in the a.m.
[2018-01-15] MEDS: *HR* OxyCODONE Immed Rel 15 MG TABLET PO PRN ×4 (03:25→21:19)
[2018-01-15] MEDS: *HR* Heparin 5,000 UNIT/ML VIAL SQ SCH ×3 (03:28→21:20)
[2018-01-15] MEDS: *HR* Morphine Sulfate SR (12 HR) 15 MG TABLET.ER PO SCH ×2 (09:24→21:19)
[2018-01-15] MEDS: Aspirin Enteric Coated 81 MG Tablet PO SCH (09:24)
--- NOTE | 2018-01-15 10:30 | Cardiology Consult Note ---
Date of Encounter: 01/15/18 Time of Encounter: 10:00 Assessment and Plan (1) Abnormal stress test Current Visit: Yes Status: Acute Encouraged patient to try medicaltherapy as stress test is probably normal and TID is likely artifact from small ventricle with chest pain being atypical, trial of NSAIDs seems to be appropriate but she is adamant regarding LHC and has history of smoking and chemoradiation as risk factors. A/R/B of LHC including 1% chance of NV//CVA/CABG/IAM/bleeding, she is aware and wishes to proceed. (2) Atypical chest pain Current Visit: Yes Status: Acute encouraged medical therapyover [facility] but she wants [facility] Discussion w patient/family: The assessment and plan as outlined above was discussed with the patient and/or family members who expressed understanding and agreement. All questions were answered. Thank you for involving us in the care of your patient. Please call with any questions. History of Present Illness Consult date: 01/15/18 Consult reason: chest pain/abnormal stress Chief complaint: chest pain History of present illness: Ms. 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 It does not worsen with a deep breath. She underwent stress testing which was found to be possibly abnormal Past Med Surg Social Fam HX - Past Medical History Medical history: asthma, cancer, COPD, hyperlipidemia, hypertension, other Psychiatric history: anxiety, depression - Past Surgical History Surgical History: other - Social History Smoking Status: Former smoker Smokeless Tobacco Status: No Alcohol use: none Drug use: none - Family History Father Living Status: Hx Family Cardiac Disorders: Yes Mother Living Status: Hx Family Cancer: Yes Medications and Allergies Methylphenidate HCl [Ritalin] 20 mg PO BID PRN 06/27/15 [History] Oxybutynin [Ditropan] 5 mg PO BID #60 tablet 04/11/17 [Rx] Levothyroxine [Synthroid] 175 mcg PO DAILY #30 tablet 11/04/17 [Rx] Ipratropium/Albuterol Neb [Duoneb] 3 ml IH Q6HR PRN #30 vial.neb 12/12/17 [Rx] Omeprazole [PriLOSEC] 40 mg PO DAILY #30 cap 12/12/17 [Rx] HydrOXYzine 10 mg PO BID 01/12/18 [History] HydrOXYzine 20 mg PO HS 01/12/18 [History] Morphine Sulfate SR (12 HR) [MS Contin] 15 mg PO BID 01/12/18 [History] Oxycodone HCl 15 mg PO QID 01/12/18 [History] 3 Allergy/AdvReac Type Severity Reaction Status Date / Time acetaminophen Allergy Nausea Verified 01/12/18 15:13 [From Darvocet-N] ciprofloxacin [From Cipro] Allergy Nausea Verified 01/12/18 15:13 hydrocodone [From Vicodin] Allergy Nausea Verified 01/12/18 15:13 propoxyphene Allergy Nausea Verified 01/12/18 15:13 [From Darvocet-N] All Systems Review: The remainder of the systems were reviewed and are negative - Constitutional Constitutional: no chills, no fever(s) - EENT Eyes: no blurred vision, no loss of vision Nose, mouth and throat: no bleeding gums, no epistaxis - Cardiovascular Cardiovascular: chest pain at rest, chest pain with exertion - Respiratory Respiratory: no hemoptysis, no wheezing - Gastrointestinal Gastrointestinal: no hematemesis, no hematochezia - Genitourinary Genitourinary: no hematuria, no nocturia - Musculoskeletal Musculoskeletal: no muscle cramps, no muscle weakness - Integumentary Integumentary: no erythema, no unusual bruising - Neurological Neurological: no syncope, no tingling - Psychiatric Psychiatric: no hallucinations, no panic attacks - Hematological/Lymphatic Hematologic/Lymphatic: no easy bleeding, no easy bruising Physical Examination Vital Signs, Last 4 Hours Temp Pulse Resp BP Pulse Ox 01/15/18 06:54 97.6 F 91 18 109/63 94 General: Conversant HEENT: Atraumatic Neck: No JVD, Other (stoma) Cardiac: Reg Rate and Rhythm Lungs: Normal Breath Sounds Neuro: Alert and responsive Skin: No rashes noted on visualized skin Musculoskeletal: No Chest Wall Tenderness Extremities: No Edema Results 01/12/18 11:56 01/13/18 05:01 - Imaging and Cardiology Stress Test: image reviewed (no ischemia, cannot ruleout TID) - EKG Interpretation EKG results cardiology: personally reviewed, sinus rhythm, no diagnostic ischemia Consult Discharge Plan - Plan Instructions: Chest Pain (DC) Referrals: Jey Talbert Jr, CNP [Primary Care Provider] - Jc Mclaughlin MD [Partnered Physician] -
[2018-01-15] MEDS ORDERED: Ketorolac 30 MG/ML VIAL IVP ONE (10:35)
--- NOTE | 2018-01-15 12:26 | Internal Med Progress Note ---
Date of Encounter: 01/15/18 Time of Encounter: 12:10 - Assessment and plan (1) Chest pain Current Visit: No Status: Acute Assessment and plan: 52/female experiencing substernal chest pain mostly dull occasionally sharp dyspnea with exertion. Risk include obesity previous smoker hypertension hyperlipidemia cancer and radiation treatment. Troponins are negative [address]-T wave abnormalities. Patient underwent a 2 day stress test results per cardiology cannot rule out multivessel CAD because small ventricle and appearance of 3 times a day which is most likely artifact cardiology did speak with patient concerning these results who is opting for cardiac catheterization on Tuesday. echocardiogram-EF 6065% normal LV chamber size wall thickness and function mild left ventricular diastolic dysfunction normal right ventricular structure and function no evidence pulmonary hypertension no significant valvular dysfunction Continue with aspirin beta myrna and statin Nitroglycerin as needed for chest pain Qualifiers: Chest pain type: other chest pain Qualified Code(s): R07.89 - Other chest pain; R07.8 - Other chest pain (2) Head and neck cancer Current Visit: No Status: Acute Assessment and plan: Patient is a supraglottic cancer. She underwent surgery/chemotherapy/radiation therapy. Patient had a metastatic disease to the brain. patient underwent radiation therapy for the same. She does have stable 8 mm left lower lobe pulmonary nodule. Was seen by oncology 01/12/18-will undergo PET scan in 2 weeks January 25 for new left lower lobe lung nodule Seen by oncology per consult-will follow-up with PET scan as outpatient (3) DVT prophylaxis Current Visit: Yes Status: Acute Assessment and plan: Heparin subcutaneous - Time Spent With Patient Total time spent is greater than 50% in coordination of care (as documented) at patient's floor/unit and/or counseling patient: - Subjective Interval history: Patient has undergone the second half of her 2 day stress test. She did have abnormali reading. Dr Hatfield did speak to patient concerning result and patient is to undergo cardiac catheterization in a.m. She will be nothing by mouth in the morning. I did review treatment plan with patient and she verbalized understanding and agreement. - Constitutional Vitals: Temp Pulse Resp BP Pulse Ox 98.1 F 91 18 123/80 95 01/15/18 11:44 01/15/18 11:44 01/15/18 11:44 01/15/18 11:44 01/15/18 11:44 General appearance: Present: A&O X 3, pleasant, no acute distress, answers questions appropriately - Head Head exam: Present: atraumatic, normocephalic - Eye Eye exam: Present: PERRL, conjuntiva pink, sclera anicteric Pupils: Present: PERRL - Neck Neck exam general surgery: Present: supple, trachea midline. Absent: lymphadenopathy - Respiratory Respiratory exam: Present: CTAB. Absent: accessory muscle use, rales, rhonchi, wheezes - Cardiovascular Cardiovascular exam: Present: RRR, +S1, +S2. Absent: diastolic murmur, gallop, rubs, systolic murmur - GI/Abdominal GI/Abdominal exam: Present: normal bowel sounds, soft, no peritoneal signs. Absent: distended, tenderness - Extremities Exam Extremities exam: Present: warm, radial pulses palpable and symmetrical. Absent : calf tenderness, cyanotic, pedal edema - Neurological Exam Neurological exam: Present: CN II-XII intact, oriented X3, no focal deficits. Absent: pronater drift, facial droop, speech deficit - Skin Skin exam: Present: dry, intact Internal Medicine: Result - Labs CBC & Chem 7: 01/12/18 11:56 01/13/18 05:01 - ABG Interpretation ABG results: PT/INR, D-dimer PT 11.6 Seconds (9.4-12.1) 01/13/18 05:01 Consult Discharge Plan - Plan Instructions: Chest Pain (DC) Referrals: Jey Talbert Jr, D[employer]ET[employer] SPECIALIST [Primary Care Provider] - Jc Mclaughlin MD [Partnered Physician] -
[2018-01-16] MEDS: *HR* OxyCODONE Immed Rel 15 MG TABLET PO PRN ×4 (03:20→21:42)
[2018-01-16] MEDS: *HR* Heparin 5,000 UNIT/ML VIAL SQ SCH ×3 (05:31→21:42)
--- NOTE | 2018-01-16 05:50 | Electrocardiograph Report ---
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
[2018-01-16] MEDS: *HR* Morphine Sulfate SR (12 HR) 15 MG TABLET.ER PO SCH ×2 (09:52→20:23)
[2018-01-16] MEDS: Aspirin Enteric Coated 81 MG Tablet PO SCH (09:53)
[2018-01-16] MEDS ORDERED: ISOVUE-370 200 ML INFUS..BTL IV ONE (13:35)
[2018-01-16] MEDS ORDERED: Heparin 1,000 UNITS/500 mL 500 ML ONE (13:35)
[2018-01-16] MEDS ORDERED: Nitroglycerin 1,000 MCG/10 ML VIAL IV ONE (13:35)
[2018-01-16] MEDS ORDERED: 0.9 % Sodium Chloride 1,000 ML ONE ×2 (13:35→13:44)
[2018-01-16] MEDS ORDERED: *HR* Heparin 10,000 UNIT/10 ML VIAL ONE (13:35)
[2018-01-16] MEDS ORDERED: *HR* Midazolam HCl 2 MG/2 ML VIAL ONE ×2 (13:44→14:09)
[2018-01-16] MEDS ORDERED: *HR* FentaNYL (PF) 100 MCG/2 ML VIAL ONE (13:44)
--- NOTE | 2018-01-16 13:51 | Pre-Sedation Evaluation ---
Pre-sedation evaluation - Pre-sedation checklist Date of procedure: 01/16/18 Procedure: left heart cath Recent Vitals: Last Vital Signs Temp 97.7 F 01/16/18 10:46 Pulse 89 01/16/18 10:46 Resp 15 01/16/18 10:46 BP 161/78 01/16/18 10:46 Pulse Ox 94 01/16/18 10:46 H&P (including ROS) documented in medical record: Yes Previous reaction to sedatives/anesthetics: No Dietary Status: NPO 6 hours prior to procedure Dentition: full dentition ASA Classification *see protocol: CLASS II-Mild systemic disease Plan of Care: Pt appropriate candidate for procedure/moderate/conscious sedation , Risks/benefits of procedure/sedation discussed w/ patient/family
[2018-01-16] MEDS ORDERED: Verapamil 5 MG/2 ML VIAL ONE (13:58)
--- NOTE | 2018-01-16 14:30 | Event Note ---
Date of Encounter: 01/16/18 Time of Encounter: 14:29 - Cardiology Event Note S/P LHC with very minimal disease. Final report pending. Continue 81mg ASA. Cardiology signing off. Reconsult PRN.
--- NOTE | 2018-01-16 16:04 | Discharge Summary ---
- NOTES TO OUTPATIENT PROVIDER Notes to Outpatient Provider: Patient is to follow-up with PET scan with oncology as outpatient. Left heart catheter with very minimal disease Date of Encounter: 01/16/18 Time of Encounter: 15:44 - Discharge Diagnosis (1) Chest pain Priority: Primary Status: Acute Qualifiers: Chest pain type: other chest pain Qualified Code(s): R07.89 - Other chest pain; R07.8 - Other chest pain (2) Head and neck cancer Priority: Secondary Status: Acute Hospital course: Ms. 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 Recently had a CT scan of chest abdomen pelvis on 01/11/2018 which showed no metastatic disease in the abdomen or pelvis however she did have a new 8 mm left lower lobe lung nodule. She has been seen by oncology as an outpatient and has a scheduled PET scan on January 26. Shepresented to the emergency department with chest pain she described as sharp shooting across her chest it is aggravated with exertion and relieved with rest. She underwent cardiac stress test which was found to be possibly abnormal. She was seen by cardiology and underwent left heart catheter which showed minimal disease. Cardiology advising to continue with aspirin and follow-up with primary care physician. She was seen by oncology during admission who advised to continue with scheduled outpatient PET scan. I advised patient to follow-up with primary care as well as oncology and to keep appointment for PET scan. She verbalized understanding. Also advised patient to continue with home medications and to take aspirin daily I answered patient's questions she is hemodynamically stable at this time and ready for discharge. Discharge discussed with: patient - Time Spent with Patient Total time spent providing and/or coordinating discharge services: - Discharge Medications Prescriptions: Aspirin Enteric Coated [Aspirin EC] 81 mg PO DAILY #30 tablet. Home Medications: Methylphenidate HCl [Ritalin] 20 mg PO BID PRN 06/27/15 [History] Oxybutynin [Ditropan] 5 mg PO BID #60 tablet 04/11/17 [Rx] Levothyroxine [Synthroid] 175 mcg PO DAILY #30 tablet 11/04/17 [Rx] Ipratropium/Albuterol Neb [Duoneb] 3 ml IH Q6HR PRN #30 vial.neb 12/12/17 [Rx] Omeprazole [PriLOSEC] 40 mg PO DAILY #30 cap 12/12/17 [Rx] HydrOXYzine 10 mg PO BID 01/12/18 [History] HydrOXYzine 20 mg PO HS 01/12/18 [History] Morphine Sulfate SR (12 HR) [MS Contin] 15 mg PO BID 01/12/18 [History] Oxycodone HCl 15 mg PO QID 01/12/18 [History] Aspirin Enteric Coated [Aspirin EC] 81 mg PO DAILY #30 tablet. 01/16/18 [Rx] Allergies/Adverse Reactions: 3 Allergy/AdvReac Type Severity Reaction Status Date / Time acetaminophen Allergy Nausea Verified 01/12/18 15:13 [From Darvocet-N] ciprofloxacin [From Cipro] Allergy Nausea Verified 01/12/18 15:13 hydrocodone [From Vicodin] Allergy Nausea Verified 01/12/18 15:13 propoxyphene Allergy Nausea Verified 01/12/18 15:13 [From Darvocet-N] Date of admission: 01/15/18 16:43 Primary care physician: Jey Talbert Jr, Discharging clinician: Vicenta Mcgowan Anticipated date of discharge: 01/16/18 - Constitutional Vitals: Temp Pulse Resp BP Pulse Ox 97.5 F L 108 15 120/77 94 01/16/18 14:45 01/16/18 14:45 01/16/18 10:46 01/16/18 14:45 01/16/18 10:46 General appearance: Present: A&O X 3, pleasant, no acute distress, answers questions appropriately - Head Head exam: Present: atraumatic, normocephalic - Eye Eye exam: Present: PERRL, conjuntiva pink, sclera anicteric Pupils: Present: PERRL - Neck Neck exam general surgery: Present: supple, trachea midline. Absent: lymphadenopathy - Respiratory Respiratory exam: Present: CTAB. Absent: accessory muscle use, rales, rhonchi, wheezes - Cardiovascular Cardiovascular exam: Present: RRR, +S1, +S2. Absent: diastolic murmur, gallop, rubs, systolic murmur - GI/Abdominal GI/Abdominal exam: Present: normal bowel sounds, soft, no peritoneal signs. Absent: distended, tenderness - Extremities Exam Extremities exam: Present: warm, radial pulses palpable and symmetrical. Absent : calf tenderness, cyanotic, pedal edema - Neurological Exam Neurological exam: Present: CN II-XII intact, oriented X3, no focal deficits. Absent: pronater drift, facial droop, speech deficit - Skin Skin exam: Present: dry, intact - Patient Status Disposition: Home, Self-Care Condition: Good Functional capacity at discharge: uses cane/walker - Discharge Instructions Instructions: Chest Pain (DC) Follow Up With: Jey Talbert Jr, CNP [Primary Care Provider] - Jc Mclaughlin MD [Partnered Physician] - Forms: Work/School Release - Diet and Activity Activity: increase activity as tolerated Diet: advance to your usual diet
[2018-01-17] MEDS: *HR* OxyCODONE Immed Rel 15 MG TABLET PO PRN ×2 (03:34→10:33)
[2018-01-17] MEDS: *HR* Heparin 5,000 UNIT/ML VIAL SQ SCH (05:52)
[2018-01-17] MEDS: Aspirin Enteric Coated 81 MG Tablet PO SCH (09:11)
[2018-01-17] MEDS: *HR* Morphine Sulfate SR (12 HR) 15 MG TABLET.ER PO SCH (09:11)
[2018-01-17 11:30] VITALS: BP 108/77
--- NOTE | 2018-02-06 12:24 | Invasive Diagnostic Lab Proc ---
Name: Kierra Zarco Date of Study: 01/16/2018 Date: 1965 Ht: 59.1in Medical Record#: [id number] Age: 52 Wt: 211.64lb Gender: Female BSA: 1.89 Order #: [id number] BMI: 42.67 Physicians Procedure Physician: Harley Hatfield MD, [facility] Referring MD: Referring MD: Staff Name Position Time In Bebe Villa RT (R) Monitor 02:02 PM Zulay Paiz RN Snap Attacher 02:02 PM Jose Armando Hernandez RT (R) Scrub 02:02 PM Indications Indication Abnormal Test - Stress Procedures Performed Procedure L HRT ARTERY/VENTRICLE ANGIO Pre-Procedure Checklist Informed consent is complete signed and on chart. H&P is on chart. ID band is on and ID verified with patient. Patient NPO for procedure The procedure was described for the patient and questions were answered. Blood Pressure: 123/74 ECG is on chart. Rhythm: NSR Plan of Care Patient will tolerate the procedure without complications. Adequate level of comfort will be maintained. Hemodynamics will remain stable Patient will recover from procedure without complications. Respiratory function will be maintained. Cardiac rhythm will remain stable. Patient temperature will be maintained. Patient and/or family have verbalized understanding of the procedure. Patient Education Chief Complaint/Reason for Test: Cardiac Cath Developmental Category: Adult (18-64 years) Developmentally Appropriate for Age: Yes Learning Barriers: None Education Needs: Procedure Education Method: Verbal Information Taught: Cardiac Cath Educational Evaluation: Able to repeat information Intravenous Access Time IV Size Location DC'd Fluid/Drip Rate Units RN 07:53 AM 20g 1 1/4" Patent On Arrival Rt Hand 0.9NaCl 25 ml/hr 02:03 PM Started with 22g 1 " Rt Arm 0.9NaCl 25 ml/hr Allergies DARVOCET hydrocodone ciprofloxacin acetaminophen Vital Signs Time BP (mmHg) HR (bpm) O2 Sat. RR (bpm) LOC 02:01 PM 123 / 74 98 94 % 16 5 = Fully awake and oriented or at pre-proc level 02:05 PM / % 4 = Oriented but drowsy 02:05 PM / % 4 = Oriented but drowsy 01:58 PM 123 / 74 94 96 % Procedural Medications Time Medication Dose Units Method Given By 02:05 PM Versed 2 mg Intravenous Zulay Paiz RN 02:05 PM Fentanyl 50 mcg Intravenous Zulay Paiz RN 02:09 PM Lidocaine 2% 0.5 ml Subcutaneous Harley Hatfield MD, FACC 02:09 PM Versed 1 mg Intravenous Zulay Paiz RN 02:09 PM Fentanyl 25 mcg Intravenous Zulay Paiz RN 02:11 PM Heparin 4000 units Nitroglycerin 200 mcg Verapamil 2.5 mg Intraarterial Harley Hatfield MD, FACC 02:19 PM Oxygen 6 L/min Oxy Mask Zulay Paiz RN ASA Classification: CLASS II- Mild systemic disease (i.e. well-controlled diabetes, hypertension, asthma, cigarette smoking) Bimal Score Preprocedure Postprocedure Activity 2- Moves 4 extremities sustained head lift Activity 2- Moves 4 extremities sustained head lift Circulation 2- SBP +/= 20 points of pre-anesthetic level Circulation 2- SBP +/= 20 points of pre-anesthetic level Consciousness 2- Awake and alert oriented x 3 Consciousness 2- Awake and alert oriented x 3 O2 Saturation 2- Able to maintain O2 satruation of 92% on room air O2 Saturation 2- Able to maintain O2 satruation of 92% on room air Respiratory 2- Able to deep breathe and cough well Respiratory 2- Able to deep breathe and cough well Total Score 10 Total Score 10 Contrast Agent: Isovue Diagnostic Contrast: 65 ml Total Contrast: 65 ml Fluoro Dose: 323 mGy Procedure Log Time Note Enter By 01:56 PM CathStat 01:57 PM NIBP STAT measurement started. 01:58 PM HR=94 bpm, IDGQ=477/74 mmhg, SpO2=96.0 %, Comment=NSR 02:01 PM Recorded ECG: HR=94 Condition=Condition 1 02:02 PM Pt arrived to ship laborer 2 at 14:02 [email or web address] 02:02 PM Bebe Villa RT (R) Position: Monitor Time in: 14:02 [email or web address] 02:02 PM Zulay Paiz RN Position: Snap Attacher Time in: 14:02 [email or web address] 02:02 PM Jose Armando Hernandez RT (R) Position: Scrub Time in: 14:02 [email or web address] 02:02 PM Patient charges- Angio tray pack, Navilyst 3mm J, Pulse Oximetry and ACIST tubing and transducer [facility] 02:02 PM IV Supplies used: J loop Angio Cath. [email or web address] 02:02 PM Case Delayed No [email or web address] 02:03 PM Hair removed from procedure site in holding area using clippers. Right wrist prepped with Chloraprep by Bebe Villa RT (R), then patient was draped. Skin intact. [email or web address] 02:03 PM Hair removed from procedure site in holding area using clippers. Right groin prepped with Chloraprep by Bebe Villa RT (R), then patient was draped. Skin intact. [email or web address] 02:03 PM Physician arrived 14:03 [email or web address] 02:03 PM ASA Class CLASS II- Mild systemic disease (i.e. well-controlled diabetes, hypertension, asthma, cigarette smoking) [email or web address] 02:03 PM Meet and greet completed [email or web address] 02:03 PM Sign in performed according to hospital policy. [email or web address] 02:03 PM Procedure start 14:03 [email or web address] 02:05 PM Time: 14:05 Patient comfortable and pain free: Yes [email or web address] 02:05 PM Time: 14:05LOC: 4 = Oriented but drowsy [email or web address] 02:05 PM Time: 14:05 Versed 2 mg Intravenous Given by Zulay Paiz RN [email or web address] 02:05 PM Time: 14:05 Fentanyl 50 mcg Intravenous Given by Zulay Paiz RN [email or web address] 02:05 PM Pressure channel 1 zeroed. 02:08 PM Time out performed according to hospital policy [email or web address] 02:09 PM Pressure channel 1 zeroed. 02:09 PM Time: 14:09 0.5 ml Lidocaine 2% to right radial Subcutaneous Given by Harley Hatfield MD, FACC [email or web address] 02:09 PM Time: 14:09 Versed 1 mg Intravenous Given by Zulay Paiz RN [email or web address] 02:09 PM Time: 14:09 Fentanyl 25 mcg Intravenous Given by Zulay Paiz RN [email or web address] 02:11 PM Access obtained by percutaneous puncture. 5Fr 10cm Terumo Glidesheath sheath placed in right Radial artery. [id number] [email or web address] 02:11 PM Time: 14:11 Patient given 4,000 units Heparin, 200 mcg Nitroglycerin, and 2.5 mg Verapamil Intraarterial by Harley Hatfield MD, FACC. This is given to reduce risk of vessel spasm and thrombosis. [email or web address] 02:11 PM 0.035 260cm Navilyst 3mmJ wire [id number] [email or web address] 02:12 PM 5Fr TIG catheter inserted over the wire [facility] [email or web address] 02:14 PM RCA angiography performed in multiple views. [email or web address] 02:14 PM Recorded Pressure: Ao, HR=94, Condition=Condition 1 (Aorta) Ao 75/57/66 02:14 PM Catheter repositioned for LCA. [email or web address] 02:14 PM Lesion found in Distal RCA. Pre Stenosis: 20 Pre MARVIN Flow: 3: Complete and Brisk Flow/Perfusion [email or web address] 02:16 PM Catheter removed [email or web address] 02:16 PM 5Fr RBL 3.5 Convey guide catheter was used to cannulate the PCI vessel successfully. reused? No [email or web address] 02:17 PM Pressure channel 1 zero failed. 02:17 PM Pressure channel 1 zeroed. 02:17 PM Recorded Pressure: LV, HR=99, Condition=Condition 1 (Left Ventricle) LV 79/14/15 02:18 PM Catheter selectively placed in left ventricle [email or web address] 02:18 PM Bolus angiogram of left Ventricle complete: 10 ml/sec for a total of 20 mls [email or web address] 02:18 PM Recorded Pressure: LV, Ao, HR=98, Condition=Condition 1 (Left Ventricle) LV 69/22/30, (Aorta) Ao 84/23/56 02:18 PM LCA angiography performed in multiple views. [email or web address] 02:19 PM Time: 14:19 Oxygen on at 6 L/min per Oxy Mask by Zulay Paiz RN [email or web address] 02:19 PM Recorded Pressure: Ao, HR=97, Condition=Condition 1 (Aorta) Ao 92/68/79 02:20 PM Time: 14:05LOC: 4 = Oriented but drowsy [email or web address] 02:20 PM Time: 14:05 Patient comfortable and pain free: Yes [email or web address] 02:20 PM Lesion found in Mid LAD. Pre Stenosis: 30 Pre MARVIN Flow: 3: Complete and Brisk Flow/Perfusion [email or web address] 02:21 PM Recorded Pressure: Ao, HR=90, Condition=Condition 1 (Aorta) Ao 89/62/75 02:21 PM Catheter removed [email or web address] 02:23 PM Procedure completed at 14:23 [email or web address] 02:23 PM Did you address MARVIN flow and Dominance? Yes [email or web address] 02:23 PM Coronary Dominance: right [email or web address] 02:23 PM Sign out completed: Radiation Dose 322.97 mGy Fluoro Time: 3.8 Isovue 370 - 200ml contrast 65 ml given by Harley Hatfield MD, [facility]. Complications: NoneCardiac Rehab Consult needed: NoConfirmed administered medications: Yes [email or web address] 02:23 PM Isovue 370 - 200ml,1 Bottle(s) used. [email or web address] 02:24 PM Arterial sheath pulled, Vasc Band closure device used and was Successful S/N. [email or web address] 02:24 PM 12 ml air in Vasc Band. [email or web address] 02:24 PM Estimated Blood Loss: minimal [email or web address] 02:24 PM Post ECG NSR [email or web address] 02:24 PM Post Blood Pressure 123/74 [email or web address] 02:24 PM 14:24 Post Pulses Rt Radial 2+ [email or web address] 02:24 PM Information taught Cardiac Cath [email or web address] 02:24 PM Education needs Procedure, Plan of Care, and Disease Process [email or web address] 02:24 PM Learning barriers :None [email or web address] 02:24 PM Education Methods Verbal [email or web address] 02:24 PM Education evaluation Able to repeat information [email or web address] 02:25 PM Site status No bleeding/hematoma - Rt Wrist as reported by Jose Armando Hernandez RT (R) at 14:24 [email or web address] 02:25 PM Delay to floor No [email or web address] 02:25 PM Family placed in not available. [email or web address] 02:25 PM Complications: None [email or web address] 02:25 PM Fluoro Time: 3.8 [email or web address] 02:25 PM Isovue 370 - 200ml contrast [address] Hatfield. [email or web address] 02:25 PM Radiation Dose 322.97 mGy [email or web address] 02:27 PM Report given to RN Pt taken to Room #31. 14:27 [email or web address] 02:30 PM Patient out of room: 14:30 [email or web address] 02:30 PM Complications: None [email or web address] Complications Complication None None None Hemodynamics Pressures Site Systolic/A Wave Diastolic/V Wave Mean AO 75 57 66 LV 79 14 15 LV 69 22 30 AO 84 23 56 AO 92 68 79 AO 89 62 75 Post Procedure Information Blood Pressure: 123/74 mmHg Rhythm: NSR Post procedural instructions were given Closure Device Time Device Success/Fail 01/16/2018 2:25:00 PM Manual Compression Successful Site Checks Time Location Status Staff Sheath In? Note 02:24 PM Rt Wrist No bleeding/hematoma Jose Armando Hernandez RT (R) Pulses Time Site Pre-Procedure Post-Procedure Note 01/16/2018 7:53:00 AM Bilateral DP 2+ 01/16/2018 7:53:00 AM Bilateral radial 2+ 2:24:00 PM Rt Radial 2+ Updated by Bebe Villa, RT(R) on 01/16/2018 2:32:11 PM electronically signed on 02/06/2018 12:15:54 PM with status of Final
== END 2018-01-17 15:55 | disposition home or self-care (01) ==
LOC: EMEROO 11:29 → 3BNU 11:29
PROVIDERS: ADMIT Hospitalist; ATTEND Hospitalist

== ENCOUNTER 2019-11-19 18:28 | Inpatient (IN) ==
[2019-11-19] MEDS ORDERED: Ketorolac 30 MG/ML VIAL IM ONE (19:04)
[2019-11-19 19:12] LABS: Hematocrit 42.5 % (35.3-44.9); Hemoglobin 13.7 g/dL (11.5-15.4); Mean Corpuscular HGB Conc 32.2 g/dL (31.6-35.5); Mean Corpuscular Hemoglobin 28.2 pg (28.0-33.3); Mean Corpuscular Volume 87.6 fL (83.0-100.0); Red Blood Count 4.85 M/mcL (3.82-4.97); Red Cell Distribution Width 14.5 % (11.5-14.5); White Blood Count 14.4 K/mcL (4.3-11.1)
[2019-11-19 19:25] LABS: Mean Platelet Volume 10.2 fL (9.4-12.4)
[2019-11-19 19:31] LABS: BUN/Creatinine Ratio 27 (6-26); Blood Urea Nitrogen 17 mg/dL (6-20); Calcium 9.1 mg/dL (8.6-10.3); Carbon Dioxide 21 mEq/L (23-29); Chloride 107 mEq/L (98-107); Glucose 282 mg/dL (70-105); Osmolality,Calculated 296 (280-300); Potassium 3.4 mEq/L (3.5-5.1); Sodium 137 mEq/L (136-145); eGFR For African Americans > 60 (> 60); eGFR For Non-African Americans > 60 (> 60)
[2019-11-19] MEDS ORDERED: 0.9 % Sodium Chloride 1,000 ML IVC STA (19:38)
[2019-11-19 20:01] LABS: Troponin I < 0.03 ng/mL (< 0.04)
[2019-11-19 20:46] LABS: Bilirubin,Urine Negative (Negative); Blood,Urine Negative (Negative); Clarity,Urine Cloudy (Clear); Color,Urine Yellow (Yellow); Glucose,Urine (UA) >=1000 mg/dL (Normal); Ketones,Urine Trace mg/dL (Negative); Leukocyte Esterase,Urine Small (Negative); Nitrite,Urine Negative (Negative); PH,Urine 5.5 pH Units (5.0-8.0); Protein,Urine Negative (Neg-Trace); Specific Gravity,Urine > 1.030 (1.010-1.025); Urobilinogen,Urine Normal (Normal)
[2019-11-19] MEDS ORDERED: Doxycycline 100 MG in 0.9 % Sodium Chloride Mini Bag 100 ML IVPB ONE (20:46)
[2019-11-19 20:49] LABS: Bacteria,Urine Many per hpf (None-Few); Hyaline Casts,Urine Few per lpf (None-Few); RBC,Urine 0-3 per hpf (0-3); Squamous Epithelial Cell,Urine Many per lpf (None-Few); WBC,Urine 50-100 per hpf (0-3)
[2019-11-19] MEDS ORDERED: Cefepime HCl 2,000 MG in Water for inj. (sterile) 20 ML IVP ONE (21:09)
[2019-11-19] MEDS ORDERED: Nitroglycerin 0.4 MG TAB.SUBL SL PRN (22:50)
[2019-11-19] MEDS ORDERED: Aspirin Enteric Coated 325 MG Tablet PO ONE (22:51)
[2019-11-19] MEDS ORDERED: Naloxone 0.4 MG/ML INJ IVP PRN (22:53)
[2019-11-19] MEDS ORDERED: Dextrose Gel 15 GM/37.5 ML TUBE PO PRN ×2 (22:53)
[2019-11-19] MEDS ORDERED: D5% in Water 1,000 ML IVC PRN (22:53)
[2019-11-19] MEDS ORDERED: 0.9 % Sodium Chloride 1,000 ML IVC ONE (22:53)
[2019-11-19] MEDS ORDERED: Ondansetron ODT 4 MG TAB.RAPDIS SL PRN (22:53)
[2019-11-19] MEDS ORDERED: *HR* OxyCODONE Immed Rel 5 MG TABLET PO PRN (22:53)
[2019-11-19] MEDS ORDERED: Albuterol 2.5 MG/3 ML NEBULIZER IH PRN (22:53)
[2019-11-19] MEDS ORDERED: *HR* Dextrose 50 % in Water (Syg) 50 ML SYRINGE IVP PRN (22:53)
[2019-11-20] MEDS: Insulin LISPRO 300 UNITS/3 ML VIAL SQ SCH ×7 (00:25→17:09)
[2019-11-20] MEDS: Benzonatate 100 MG CAPSULE PO SCH ×4 (00:39→20:58)
[2019-11-20 00:55] LABS: Prothrombin Time 11.2 Seconds (9.4-12.1)
[2019-11-20 00:57] LABS: Basophils # 0.1 K/mcL (0.0-0.2); Basophils % 1.1 %; Eosinophils # 0.1 K/mcL (0.0-0.6); Eosinophils % 0.7 %; Hematocrit 41.9 % (35.3-44.9); Hemoglobin 12.8 g/dL (11.5-15.4); Immature Granulocytes % 1.6 % (0-4); Lymphocytes # 3.1 K/mcL (0.6-4.6); Lymphocytes % 30.5 %; Mean Corpuscular HGB Conc 30.5 g/dL (31.6-35.5); Mean Corpuscular Hemoglobin 28.5 pg (28.0-33.3); Mean Corpuscular Volume 93.3 fL (83.0-100.0); Mean Platelet Volume 11.2 fL (9.4-12.4); Monocytes # 0.6 K/mcL (0.0-1.3); Monocytes % 6.2 %; Neutrophils # 6.2 K/mcL (1.6-8.9); Platelet Count 192 K/mcL (140-400); Red Blood Count 4.49 M/mcL (3.82-4.97); Red Cell Distribution Width 14.6 % (11.5-14.5); Segmented Neutrophils % 59.9 %; White Blood Count 10.3 K/mcL (4.3-11.1)
[2019-11-20 01:09] LABS: Alanine Aminotransferase 40 Units/L (7-52); Albumin 4.1 g/dL (3.5-5.7); Albumin/Globulin Ratio 1.5 (1.1-2.2); Alkaline Phosphatase 76 Units/L (34-104); Aspartate Amino Transferase 30 Units/L (13-39); BUN/Creatinine Ratio 28 (6-26); Bilirubin,Total 0.3 mg/dL (0.3-1.0); Blood Urea Nitrogen 18 mg/dL (6-20); Calcium 8.7 mg/dL (8.6-10.3); Carbon Dioxide 17 mEq/L (23-29); Chloride 108 mEq/L (98-107); Globulin 2.7 g/dL (2.4-3.5); Glucose 322 mg/dL (70-105); Magnesium 1.9 mg/dL (1.6-2.6); Osmolality,Calculated 294 (280-300); Phosphorous 2.6 mg/dL (2.7-4.5); Potassium 3.3 mEq/L (3.5-5.1); Sodium 135 mEq/L (136-145); Total Protein 6.8 g/dL (6.4-8.9); eGFR For African Americans > 60 (> 60); eGFR For Non-African Americans > 60 (> 60)
[2019-11-20 01:33] LABS: Adenovirus Not Detected (Not Detect); Bordetella Pertussis Not Detected (Not Detect); Chlamydophila pneumoniae Not Detected (Not Detect); Coronavirus 229E Not Detected (Not Detect); Coronavirus HKU1 Not Detected (Not Detect); Coronavirus NL63 Not Detected (Not Detect); Coronavirus OC43 Not Detected (Not Detect); Human Metapneumovirus Not Detected (Not Detect); Human Rhinovirus/Enterovirus Not Detected (Not Detect); Influenza A Subtype 2009 H1 Not Detected (Not Detect); Influenza B Not Detected (Not Detect); Mycoplasma pneumoniae Not Detected (Not Detect); Parainfluenza Virus 1 Not Detected (Not Detect); Parainfluenza Virus 2 Not Detected (Not Detect); Parainfluenza Virus 3 Not Detected (Not Detect); Parainfluenza Virus 4 Not Detected (Not Detect); Respiratory Syncytial Virus Not Detected (Not Detect)
[2019-11-20 02:42] LABS: Estimated Average Glucose 206 mg/dl
[2019-11-20] MEDS: Acetaminophen 325 MG TABLET PO PRN ×4 (03:48→23:11)
[2019-11-20] MEDS: Ipratropium/Albuterol Neb 3 ML IH SCH ×4 (03:52→22:07)
[2019-11-20] MEDS: *HR* Heparin 5,000 UNIT/ML VIAL SQ SCH ×2 (05:26→17:09)
[2019-11-20] MEDS ORDERED: 0.9 % Sodium Chloride 1,000 ML IVC SCH (07:15)
[2019-11-20] MEDS: Aspirin Enteric Coated 81 MG Tablet PO SCH (08:22)
[2019-11-20] MEDS: predniSONE 20 MG TABLET PO SCH (08:22)
[2019-11-20] MEDS: cefTRIAXone 2,000 MG in Water for inj. (sterile) 20 ML IVP SCH (08:23)
[2019-11-20] MEDS: Isosorbide MONOnitrate (24 HR) 30 MG TAB.ER.24H PO SCH (09:19)
[2019-11-20] MEDS: 0.9 % Sodium Chloride w KCl 40 MEQ/1,000 ML MLS IVC SCH ×2 (09:20→20:58)
[2019-11-20] MEDS ORDERED: Cefepime HCl 2,000 MG in Water for inj. (sterile) 20 ML IVP ONE (20:47)
[2019-11-21] MEDS: Ipratropium/Albuterol Neb 3 ML IH SCH ×4 (04:29→22:11)
[2019-11-21] MEDS ORDERED: Menthol 9.1 MG LOZENGE PO PRN (04:48)
[2019-11-21 05:15] LABS: BUN/Creatinine Ratio 21 (6-26); Blood Urea Nitrogen 12 mg/dL (6-20); Carbon Dioxide 21 mEq/L (23-29); Chloride 105 mEq/L (98-107); Glucose 191 mg/dL (70-105); Osmolality,Calculated 287 (280-300); Potassium 3.9 mEq/L (3.5-5.1); Sodium 136 mEq/L (136-145); eGFR For African Americans > 60 (> 60); eGFR For Non-African Americans > 60 (> 60)
[2019-11-21 05:19] LABS: Basophils # 0.1 K/mcL (0.0-0.2); Basophils % 0.7 %; Eosinophils # 0.1 K/mcL (0.0-0.6); Eosinophils % 0.9 %; Hematocrit 38.8 % (35.3-44.9); Hemoglobin 12.4 g/dL (11.5-15.4); Immature Granulocytes % 1.5 % (0-4); Immature Platelets 27.8 % (1.1-6.1); Mean Corpuscular Hemoglobin 27.9 pg (28.0-33.3); Mean Corpuscular Volume 87.4 fL (83.0-100.0); Mean Platelet Volume 11.7 fL (9.4-12.4); Monocytes # 0.7 K/mcL (0.0-1.3); Monocytes % 6.2 %; Red Blood Count 4.44 M/mcL (3.82-4.97); Red Cell Distribution Width 14.6 % (11.5-14.5); Segmented Neutrophils % 63.7 %
[2019-11-21] MEDS: *HR* Heparin 5,000 UNIT/ML VIAL SQ SCH ×2 (05:20→17:24)
[2019-11-21 06:29] LABS: Mean Platelet Volume 10.1 fL (9.4-12.4)
[2019-11-21] MEDS: predniSONE 20 MG TABLET PO SCH (08:11)
[2019-11-21] MEDS: Acetaminophen 325 MG TABLET PO PRN ×3 (08:11→21:36)
[2019-11-21] MEDS: Aspirin Enteric Coated 81 MG Tablet PO SCH (08:12)
[2019-11-21] MEDS: cefTRIAXone 2,000 MG in Water for inj. (sterile) 20 ML IVP SCH (08:12)
[2019-11-21] MEDS: Benzonatate 100 MG CAPSULE PO SCH ×2 (08:12→15:42)
[2019-11-21] MEDS: Isosorbide MONOnitrate (24 HR) 30 MG TAB.ER.24H PO SCH (08:12)
[2019-11-21] MEDS: Insulin LISPRO 300 UNITS/3 ML VIAL SQ SCH ×3 (08:13→17:22)
[2019-11-21] MEDS ORDERED: amLODIPine 5 MG TABLET PO SCH (09:00)
[2019-11-22] MEDS: Benzonatate 100 MG CAPSULE PO SCH ×4 (00:03→23:36)
[2019-11-22] MEDS: Ipratropium/Albuterol Neb 3 ML IH SCH ×4 (03:46→22:14)
[2019-11-22] MEDS: Acetaminophen 325 MG TABLET PO PRN ×3 (03:56→23:41)
[2019-11-22] MEDS: *HR* Heparin 5,000 UNIT/ML VIAL SQ SCH ×2 (06:03→17:21)
[2019-11-22] MEDS: Aspirin Enteric Coated 81 MG Tablet PO SCH (08:06)
[2019-11-22] MEDS: Insulin LISPRO 300 UNITS/3 ML VIAL SQ SCH ×3 (08:07→16:00)
[2019-11-22] MEDS: Isosorbide MONOnitrate (24 HR) 30 MG TAB.ER.24H PO SCH (08:07)
[2019-11-22] MEDS: predniSONE 20 MG TABLET PO SCH (08:07)
[2019-11-22] MEDS: cefTRIAXone 2,000 MG in Water for inj. (sterile) 20 ML IVP SCH (08:07)
[2019-11-22] MEDS: MethylPREDNISolone 40 MG/ML VIAL IVP SCH ×3 (10:49→23:36)
[2019-11-22] MEDS ORDERED: *HR* LORazepam 2 MG/ML VIAL IVP ONE (15:14)
[2019-11-22] MEDS ORDERED: Insulin DETEMIR 100 UNIT/ML X5UNITS SQ SCH (21:00)
[2019-11-22] MEDS ORDERED: Insulin LISPRO 300 UNITS/3 ML VIAL SQ SCH (21:00)
[2019-11-23] MEDS ORDERED: *HR* LORazepam 0.5 MG TABLET PO ONE (03:20)
[2019-11-23] MEDS: Ipratropium/Albuterol Neb 3 ML IH SCH ×3 (03:46→16:10)
[2019-11-23] MEDS: *HR* Heparin 5,000 UNIT/ML VIAL SQ SCH ×2 (06:10→16:08)
[2019-11-23] MEDS ORDERED: *HR* LORazepam 0.5 MG TABLET PO PRN (07:55)
[2019-11-23] MEDS: Insulin LISPRO 300 UNITS/3 ML VIAL SQ SCH ×3 (08:49→16:51)
[2019-11-23] MEDS: Aspirin Enteric Coated 81 MG Tablet PO SCH (08:49)
[2019-11-23] MEDS: Benzonatate 100 MG CAPSULE PO SCH ×2 (08:49→16:07)
[2019-11-23] MEDS: cefTRIAXone 2,000 MG in Water for inj. (sterile) 20 ML IVP SCH (08:50)
[2019-11-23] MEDS ORDERED: predniSONE 20 MG TABLET PO SCH (09:00)
[2019-11-23] MEDS ORDERED: Doxycycline 100 MG CAPSULE PO SCH (09:00)
[2019-11-23] MEDS ORDERED: lisinopriL 10 MG TABLET PO SCH (09:00)
[2019-11-23] MEDS: *HR* Metformin 500 MG TABLET PO SCH ×2 (12:13→16:07)
[2019-11-23] MEDS: Acetaminophen 325 MG TABLET PO PRN (16:07)
[2019-11-23 16:24] VITALS: BP 121/72
== END 2019-11-23 18:35 | disposition home or self-care (01) | DRG 720 ==
LOC: EMEROOARM 18:28 → 2ANU 18:28 → SUATTDRO 21:49 → 2ANU 22:50
PROVIDERS: ADMIT Student in an Organized Health Care Education/Training Program; ATTEND Internal Medicine

== ENCOUNTER 2020-04-16 13:53 | Inpatient (IN) ==
[2020-04-16] MEDS ORDERED: Ondansetron 4 MG/2 ML VIAL IVP ONE (14:27)
[2020-04-16] MEDS ORDERED: 0.9 % Sodium Chloride 1,000 ML IVC ONE (14:27)
[2020-04-16 15:08] LABS: Basophils # 0.1 K/mcL (0.0-0.2); Basophils % 1.1 %; Eosinophils # 0.2 K/mcL (0.0-0.6); Hematocrit 40.6 % (35.3-44.9); Hemoglobin 12.8 g/dL (11.5-15.4); Immature Granulocytes % 0.4 % (0-4); Immature Platelets 21.8 % (1.1-6.1); Lymphocytes # 1.7 K/mcL (0.6-4.6); Lymphocytes % 20.3 %; Mean Corpuscular HGB Conc 31.5 g/dL (31.6-35.5); Mean Corpuscular Hemoglobin 28.3 pg (28.0-33.3); Mean Corpuscular Volume 89.8 fL (83.0-100.0); Mean Platelet Volume 12.3 fL (9.4-12.4); Monocytes # 0.5 K/mcL (0.0-1.3); Monocytes % 6.1 %; Neutrophils # 5.9 K/mcL (1.6-8.9); Red Blood Count 4.52 M/mcL (3.82-4.97); Segmented Neutrophils % 70.1 %; White Blood Count 8.4 K/mcL (4.3-11.1)
[2020-04-16 15:36] LABS: Alanine Aminotransferase 28 Units/L (7-52); Albumin 4.9 g/dL (3.5-5.7); Albumin/Globulin Ratio 1.8 (1.1-2.2); Alkaline Phosphatase 64 Units/L (34-104); Aspartate Amino Transferase 37 Units/L (13-39); BUN/Creatinine Ratio 15 (6-26); Bilirubin,Total 0.4 mg/dL (0.3-1.0); Blood Urea Nitrogen 11 mg/dL (6-20); Calcium 9.9 mg/dL (8.6-10.3); Carbon Dioxide 25 mEq/L (23-29); Chloride 101 mEq/L (98-107); Globulin 2.7 g/dL (2.4-3.5); Glucose 160 mg/dL (70-105); Lipase 17 Units/L (11-82); Osmolality,Calculated 287 (280-300); Potassium 3.8 mEq/L (3.5-5.1); Sodium 137 mEq/L (136-145); Total Protein 7.6 g/dL (6.4-8.9); eGFR For African Americans > 60 (> 60); eGFR For Non-African Americans > 60 (> 60)
[2020-04-16 15:43] LABS: Troponin I < 0.03 ng/mL (< 0.04)
[2020-04-16] MEDS ORDERED: methylPREDNISolone 125 MG/2 ML VIAL IVP ONE (15:53)
[2020-04-16] MEDS ORDERED: cefTRIAXone 1,000 MG in Water for inj. (sterile) 10 ML IVP ONE (16:04)
[2020-04-16] MEDS ORDERED: Metoclopramide 10 MG/2 ML VIAL IVP ONE (16:39)
[2020-04-16] MEDS ORDERED: Ondansetron 4 MG/2 ML VIAL IVP PRN (16:52)
[2020-04-16] MEDS ORDERED: Naloxone 0.4 MG/ML INJ IVP PRN (16:52)
[2020-04-16] MEDS ORDERED: *HR* Dextrose 50 % in Water (Vial) 50 ML VIAL IVP PRN (17:01)
[2020-04-16] MEDS ORDERED: Dextrose Gel 15 GM/37.5 ML TUBE PO PRN ×2 (17:01)
[2020-04-16] MEDS ORDERED: D5% in Water 1,000 ML IVC PRN (17:01)
[2020-04-16 17:30] LABS: Bacteria,Urine Moderate per hpf (None-Few); Bilirubin,Urine Negative (Negative); Blood,Urine Negative (Negative); Clarity,Urine Clear (Clear); Color,Urine Colorless (Yellow); Glucose,Urine (UA) Normal (Normal); Ketones,Urine Negative (Negative); Leukocyte Esterase,Urine Large (Negative); Nitrite,Urine Positive (Negative); Protein,Urine Negative (Neg-Trace); Specific Gravity,Urine 1.005 (1.010-1.025); Squamous Epithelial Cell,Urine Few per hpf (None-Few); Urobilinogen,Urine Normal (Normal); WBC,Urine 15-30 per hpf (0-3)
[2020-04-16] MEDS: Ipratropium/Albuterol Neb 3 ML IH SCH ×2 (17:45→21:00)
[2020-04-16 18:25] LABS: Adenovirus Not Detected (Not Detect); Bordetella Pertussis Not Detected (Not Detect); Chlamydophila pneumoniae Not Detected (Not Detect); Coronavirus 229E Not Detected (Not Detect); Coronavirus HKU1 Not Detected (Not Detect); Coronavirus NL63 Not Detected (Not Detect); Coronavirus OC43 Not Detected (Not Detect); Human Metapneumovirus Not Detected (Not Detect); Human Rhinovirus/Enterovirus Not Detected (Not Detect); Influenza A Subtype 2009 H1 Not Detected (Not Detect); Influenza B Not Detected (Not Detect); Mycoplasma pneumoniae Not Detected (Not Detect); Parainfluenza Virus 1 Not Detected (Not Detect); Parainfluenza Virus 2 Not Detected (Not Detect); Parainfluenza Virus 3 Not Detected (Not Detect); Parainfluenza Virus 4 Not Detected (Not Detect); Respiratory Syncytial Virus Not Detected (Not Detect)
[2020-04-16] MEDS: Insulin LISPRO 300 UNITS/3 ML VIAL SQ SCH (20:18)
[2020-04-16] MEDS: Pantoprazole 40 MG VIAL IVP SCH (20:59)
[2020-04-16] MEDS ORDERED: Insulin LISPRO 300 UNITS/3 ML VIAL SQ SCH (21:00)
[2020-04-16] MEDS: Azithromycin 500 MG in 0.9 % Sodium Chloride 250 ML IVPB SCH (22:02)
[2020-04-16] MEDS ORDERED: *HR* OxyCODONE Immed Rel 5 MG TABLET PO ONE (22:23)
[2020-04-16] MEDS ORDERED: Morphine Sulfate Immed Rel 15 MG TABLET PO ONE (22:25)
[2020-04-17] MEDS: Ipratropium/Albuterol Neb 3 ML IH SCH ×4 (04:14→22:44)
[2020-04-17] MEDS ORDERED: *HR* Promethazine 25 MG/ML VIAL IVP ONE (04:20)
[2020-04-17] MEDS ORDERED: Acetaminophen 325 MG TABLET PO ONE (04:22)
[2020-04-17 05:16] LABS: Basophils % 0.3 %; Hemoglobin 12.2 g/dL (11.5-15.4)
[2020-04-17 05:18] LABS: Hematocrit 38.2 % (35.3-44.9); Immature Granulocytes % 0.9 % (0-4); Lymphocytes # 0.8 K/mcL (0.6-4.6); Lymphocytes % 10.5 %; Mean Corpuscular HGB Conc 31.9 g/dL (31.6-35.5); Mean Corpuscular Hemoglobin 29.6 pg (28.0-33.3); Mean Corpuscular Volume 92.7 fL (83.0-100.0); Monocytes # 0.1 K/mcL (0.0-1.3); Monocytes % 1.1 %; Neutrophils # 6.8 K/mcL (1.6-8.9); Red Blood Count 4.12 M/mcL (3.82-4.97); Segmented Neutrophils % 87.2 %; White Blood Count 7.8 K/mcL (4.3-11.1)
[2020-04-17 05:35] LABS: BUN/Creatinine Ratio 11 (6-26); Blood Urea Nitrogen 11 mg/dL (6-20); Calcium 9.2 mg/dL (8.6-10.3); Carbon Dioxide 21 mEq/L (23-29); Chloride 102 mEq/L (98-107); Glucose 352 mg/dL (70-105); Osmolality,Calculated 293 (280-300); Potassium 4.2 mEq/L (3.5-5.1); Sodium 135 mEq/L (136-145); eGFR For African Americans > 60 (> 60); eGFR For Non-African Americans 57 (> 60)
[2020-04-17 05:47] LABS: Mean Platelet Volume 11.9 fL (9.4-12.4)
[2020-04-17] MEDS: Pantoprazole 40 MG VIAL IVP SCH ×2 (06:06→17:28)
[2020-04-17] MEDS: Gabapentin 100 MG CAPSULE PO SCH ×3 (08:32→20:20)
[2020-04-17] MEDS: *HR* OxyCODONE Immed Rel 5 MG TABLET PO PRN ×2 (08:32→18:06)
[2020-04-17] MEDS: Insulin LISPRO 300 UNITS/3 ML VIAL SQ SCH ×3 (08:45→16:03)
[2020-04-17] MEDS ORDERED: MethylPREDNISolone 40 MG/ML VIAL IVP SCH (09:00)
[2020-04-17] MEDS ORDERED: Insulin LISPRO 300 UNITS/3 ML VIAL SQ SCH (10:54)
[2020-04-17] MEDS: Ondansetron 4 MG/2 ML VIAL IVP PRN (11:45)
[2020-04-17] MEDS: Azithromycin 500 MG in 0.9 % Sodium Chloride 250 ML IVPB SCH (17:29)
[2020-04-17] MEDS: cefTRIAXone 1,000 MG in 0.9 % Sodium Chloride Mini Bag 100 ML IVPB SCH (17:29)
[2020-04-17] MEDS ORDERED: Nitroglycerin 0.4 MG TAB.SUBL SL PRN (21:51)
[2020-04-18] MEDS: *HR* OxyCODONE Immed Rel 5 MG TABLET PO PRN ×3 (02:18→23:21)
[2020-04-18] MEDS: Ondansetron 4 MG/2 ML VIAL IVP PRN (02:19)
[2020-04-18] MEDS: Ipratropium/Albuterol Neb 3 ML IH SCH ×4 (03:57→21:44)
[2020-04-18] MEDS: Pantoprazole 40 MG VIAL IVP SCH ×2 (05:21→17:23)
[2020-04-18 07:00] LABS: BUN/Creatinine Ratio 15 (6-26); Blood Urea Nitrogen 13 mg/dL (6-20); Calcium 9.2 mg/dL (8.6-10.3); Carbon Dioxide 21 mEq/L (23-29); Chloride 102 mEq/L (98-107); Glucose 362 mg/dL (70-105); Osmolality,Calculated 293 (280-300); Potassium 3.8 mEq/L (3.5-5.1); Sodium 134 mEq/L (136-145); eGFR For African Americans > 60 (> 60); eGFR For Non-African Americans > 60 (> 60)
[2020-04-18] MEDS: Insulin LISPRO 300 UNITS/3 ML VIAL SQ SCH ×4 (07:53→20:09)
[2020-04-18] MEDS: predniSONE 20 MG TABLET PO SCH (07:54)
[2020-04-18] MEDS: Gabapentin 100 MG CAPSULE PO SCH ×3 (07:54→20:08)
[2020-04-18] MEDS ORDERED: MethylPREDNISolone 40 MG/ML VIAL IVP SCH (09:00)
[2020-04-18] MEDS: Acetylcysteine 10% 2 ML INHSOL IH SCH ×3 (11:38→21:44)
[2020-04-18] MEDS ORDERED: Insulin DETEMIR 100 UNIT/ML X5UNITS SQ SCH (12:30)
[2020-04-18] MEDS: Famotidine 20 MG TABLET PO SCH (17:23)
[2020-04-18] MEDS: cefTRIAXone 1,000 MG in 0.9 % Sodium Chloride Mini Bag 100 ML IVPB SCH (17:24)
[2020-04-18] MEDS ORDERED: *HR* OxyCODONE Immed Rel 5 MG TABLET PO SCH (17:45)
[2020-04-18] MEDS: Azithromycin 500 MG in 0.9 % Sodium Chloride 250 ML IVPB SCH (18:31)
[2020-04-19] MEDS: Ondansetron 4 MG/2 ML VIAL IVP PRN (03:34)
[2020-04-19] MEDS: Ipratropium/Albuterol Neb 3 ML IH SCH ×4 (03:39→22:28)
[2020-04-19] MEDS: Acetylcysteine 10% 2 ML INHSOL IH SCH ×4 (03:39→22:28)
[2020-04-19 05:35] LABS: Basophils # 0.1 K/mcL (0.0-0.2); Basophils % 0.8 %; Eosinophils % 0.3 %; Hematocrit 39.1 % (35.3-44.9); Hemoglobin 12.9 g/dL (11.5-15.4); Immature Granulocytes % 2.1 % (0-4); Lymphocytes # 2.8 K/mcL (0.6-4.6); Lymphocytes % 26.4 %; Mean Corpuscular Hemoglobin 29.5 pg (28.0-33.3); Mean Corpuscular Volume 89.5 fL (83.0-100.0); Mean Platelet Volume 12.1 fL (9.4-12.4); Monocytes # 0.6 K/mcL (0.0-1.3); Monocytes % 5.5 %; Neutrophils # 6.9 K/mcL (1.6-8.9); Platelet Count 114 K/mcL (140-400); Red Blood Count 4.37 M/mcL (3.82-4.97); Segmented Neutrophils % 64.9 %; White Blood Count 10.6 K/mcL (4.3-11.1)
[2020-04-19 05:36] LABS: Alanine Aminotransferase 35 Units/L (7-52); Albumin 4.7 g/dL (3.5-5.7); Albumin/Globulin Ratio 1.7 (1.1-2.2); Alkaline Phosphatase 59 Units/L (34-104); Aspartate Amino Transferase 33 Units/L (13-39); BUN/Creatinine Ratio 19 (6-26); Bilirubin,Total 0.3 mg/dL (0.3-1.0); Blood Urea Nitrogen 14 mg/dL (6-20); Calcium 9.5 mg/dL (8.6-10.3); Carbon Dioxide 29 mEq/L (23-29); Chloride 100 mEq/L (98-107); Globulin 2.7 g/dL (2.4-3.5); Glucose 119 mg/dL (70-105); Osmolality,Calculated 290 (280-300); Potassium 3.7 mEq/L (3.5-5.1); Sodium 139 mEq/L (136-145); Total Protein 7.4 g/dL (6.4-8.9); eGFR For African Americans > 60 (> 60); eGFR For Non-African Americans > 60 (> 60)
[2020-04-19] MEDS: Pantoprazole 40 MG VIAL IVP SCH ×2 (06:02→17:06)
[2020-04-19] MEDS: Gabapentin 100 MG CAPSULE PO SCH ×3 (08:53→20:35)
[2020-04-19] MEDS: *HR* OxyCODONE Immed Rel 5 MG TABLET PO PRN ×3 (08:53→22:30)
[2020-04-19] MEDS: predniSONE 20 MG TABLET PO SCH (08:53)
[2020-04-19] MEDS: Famotidine 20 MG TABLET PO SCH ×2 (08:53→16:14)
[2020-04-19] MEDS: Insulin LISPRO 300 UNITS/3 ML VIAL SQ SCH ×4 (08:54→20:34)
[2020-04-19] MEDS: Mag Hydrox/Al Hydrox/Simeth 30 ML UDC PO SCH ×3 (11:33→22:31)
[2020-04-19] MEDS: cefTRIAXone 1,000 MG in 0.9 % Sodium Chloride Mini Bag 100 ML IVPB SCH (17:07)
[2020-04-19] MEDS: Azithromycin 500 MG in 0.9 % Sodium Chloride 250 ML IVPB SCH (18:09)
[2020-04-20] MEDS: Acetylcysteine 10% 2 ML INHSOL IH SCH ×3 (04:10→15:57)
[2020-04-20] MEDS: Ipratropium/Albuterol Neb 3 ML IH SCH ×3 (04:10→15:57)
[2020-04-20] MEDS: Mag Hydrox/Al Hydrox/Simeth 30 ML UDC PO SCH ×2 (06:27→11:12)
[2020-04-20] MEDS: Pantoprazole 40 MG VIAL IVP SCH (06:28)
[2020-04-20] MEDS: *HR* OxyCODONE Immed Rel 5 MG TABLET PO PRN ×2 (06:31→12:23)
[2020-04-20] MEDS: Famotidine 20 MG TABLET PO SCH (07:46)
[2020-04-20] MEDS: Insulin LISPRO 300 UNITS/3 ML VIAL SQ SCH ×2 (07:47→11:13)
[2020-04-20] MEDS: predniSONE 20 MG TABLET PO SCH (07:47)
[2020-04-20] MEDS: Gabapentin 100 MG CAPSULE PO SCH ×2 (07:47→15:02)
[2020-04-20] MEDS: Ondansetron 4 MG/2 ML VIAL IVP PRN (08:56)
[2020-04-20] MEDS ORDERED: *HR* Promethazine 25 MG/ML VIAL IVP PRN (09:39)
[2020-04-20 11:32] LABS: Basophils % 0.8 %
[2020-04-20 11:34] LABS: Basophils # 0.1 K/mcL (0.0-0.2); Eosinophils % 0.2 %; Hematocrit 37.7 % (35.3-44.9); Hemoglobin 12.3 g/dL (11.5-15.4); Immature Granulocytes % 1.2 % (0-4); Lymphocytes # 1.3 K/mcL (0.6-4.6); Lymphocytes % 13.7 %; Mean Corpuscular HGB Conc 32.6 g/dL (31.6-35.5); Mean Corpuscular Hemoglobin 29.3 pg (28.0-33.3); Mean Corpuscular Volume 89.8 fL (83.0-100.0); Monocytes # 0.4 K/mcL (0.0-1.3); Monocytes % 4.6 %; Red Cell Distribution Width 14.2 % (11.5-14.5); Segmented Neutrophils % 79.5 %; White Blood Count 9.1 K/mcL (4.3-11.1)
[2020-04-20 11:48] VITALS: BP 147/97
[2020-04-20 11:53] LABS: BUN/Creatinine Ratio 20 (6-26); Blood Urea Nitrogen 18 mg/dL (6-20); Calcium 9.6 mg/dL (8.6-10.3); Carbon Dioxide 26 mEq/L (23-29); Chloride 97 mEq/L (98-107); Glucose 266 mg/dL (70-105); Osmolality,Calculated 285 (280-300); Sodium 132 mEq/L (136-145); eGFR For African Americans > 60 (> 60); eGFR For Non-African Americans > 60 (> 60)
[2020-04-20 12:18] LABS: Neutrophils # 7.2 K/mcL (1.6-8.9)
[2020-04-20] MEDS ORDERED: Azithromycin 250 MG TABLET PO SCH (18:00)
== END 2020-04-20 17:10 | disposition home or self-care (01) | DRG 140 ==
LOC: EMEROOARM 13:53 → CDU 13:53 → SUATTDRO 18:42 → CDU 19:34 → 2ANU 04-17 06:56
PROVIDERS: ADMIT Student in an Organized Health Care Education/Training Program; ATTEND Family Medicine